=== PATIENT | male | born 1990 | race Caucasian/White ===

== ENCOUNTER 2016-05-30 21:06 | Inpatient (IN) | payer OTHER ==
[~2016-05-30] VITALS: Ht 177.8 cm; Wt 94.7 kg
[2016-05-30 22:20] LABS: MEAN CORPUSCULAR HEMOGLOBIN 29.6 pg (27.0-33.0); MEAN CORPUSCULAR HGB CONC 33.3 g/dl (32.0-36.5); MEAN CORPUSCULAR VOLUME 89.1 fl (80.0-96.0); RED CELL DISTRIBUTION WIDTH 13.2 % (11.5-14.5); WHITE BLOOD COUNT 9.3 K/mm3 (4.0-10.0)
[2016-05-30 22:32] LABS: ALBUMIN 4.2 GM/DL (3.2-5.2); ALKALINE PHOSPHATASE 83 U/L (45-117); ALT/SGPT 32 U/L (12-78); ANION GAP 9 MEQ/L (8-16); AST/SGOT 17 U/L (15-37); BILIRUBIN,DIRECT < 0.1 MG/DL (0.0-0.2); BILIRUBIN,TOTAL 0.4 MG/DL (0.2-1.0); BLOOD UREA NITROGEN 14 MG/DL (7-18); CALCIUM LEVEL 8.7 MG/DL (8.5-10.1); CARBON DIOXIDE LEVEL 26 MEQ/L (21-32); CHLORIDE LEVEL 106 MEQ/L (98-107); CREATININE FOR GFR 0.91 MG/DL (0.70-1.30); GLOMERULAR FILTRATION RATE > 60.0 (>60); GLUCOSE, FASTING 88 MG/DL (70-105); POTASSIUM SERUM 3.8 MEQ/L (3.5-5.1); SODIUM LEVEL 141 MEQ/L (136-145); TOTAL PROTEIN 7.7 GM/DL (6.4-8.2)
[2016-05-30 22:44] LABS: AMPHETAMINES LEVEL URINE NEGATIVE (NEGATIVE); BENZODIAZEPINES URINE NEGATIVE (NEGATIVE); COCAINE METABOLITE URINE NEGATIVE (NEGATIVE); CONTROL LINE INT CTR LINE PRESENT; METHADONE URINE NEGATIVE (NEGATIVE); OPIATES URINE NEGATIVE (NEGATIVE); TRICYCLIC ANTIDEPRESS URINE NEGATIVE (NEGATIVE)
[2016-05-31] MEDS ORDERED: ACETAMINOPHEN TAB 650MG DOSE (2X325MG) PO PRN (00:15)
[2016-05-31] MEDS ORDERED: MAALOX 30 ML SUSP *UDC PO PRN (00:15)
[2016-05-31] MEDS ORDERED: MOM 30ML SUSPENSION UDC PO PRN (00:15)
[2016-05-31] MEDS ORDERED: ACET-654 PO (00:42)
[2016-05-31] MEDS ORDERED: OCEA0.654 (00:42)
--- NOTE | 2016-05-31 02:27 | EDDOCDS ---
Physician Documentation [facility] Name: Thom Lopez Age: 26 yrs Sex: Male : 1990 Arrival Date: 05/30/2016 Time: 21:06 Bed [facility] Private MD: Other - Complete Info On Cds Disposition: 05/30/16 23:57 Hospitalization ordered by Gustavo Gilman for Inpatient Admission. Preliminary diagnosis is Suicidal ideations. - Bed requested for Admit. - Status is Inpatient Admission. rw1 - Condition is Stable. - Problem is new. - Symptoms are unchanged. Historical: - Allergies: No known drug Allergies; - Home Meds: 1. none - PMHx: none; - PSHx: none; - Social history: Smoking status: Patient uses tobacco products, heavy tobacco smoker. No barriers to communication noted, The patient speaks fluent Telugu, Speaks appropriately for age. - Family history: Not pertinent. - : The pt / caregiver states he / she is not on anticoagulants. Home medication list is obtained from the patient. - Exposure Risk Screening:: None identified. Vital Signs: 05/30 21:08 BP 149 / 85; Pulse 83; Resp 18 S; Temp 96.5(O); Pulse Ox 99% on R/A; Weight 86.64 kg / gr2 191.01 lbs (R); Height 5 ft. 10 in. (177.80 cm) (R); Pain 2/10; 05/31 02:17 BP 133 / 70; Pulse 88; Resp 18; Temp 96.9(O); Pulse Ox 98% on R/A; Pain 0/10; rw1 05/30 21:08 Body Mass Index 27.41 (86.64 kg, 177.80 cm) gr2 MDM: 05/30 21:30 Consult PFS/PSA/Child Care ordered. br1 21:30 Consult PFS/PSA/Child Care: Patient's case requires discussion with on-call br1 Psychiatrist ordered. 21:30 PSA/PFS to call Nursing Card Player, to enter patient data on [place] Safe Act if patient br1 involuntarily admitted or transferred for SI or HI ordered. 21:30 Confirm accurate psychiatric medication list and times of last dosage ordered. br1 21:30 Detain Pt Until Medically/PFS Cleared ordered. br1 21:30 Acetaminophen Level Ordered. EDMS 21:30 Basic Metabolic Profile Ordered. EDMS 21:30 Complete Blood Count Ordered. EDMS 21:30 Drug Eval Toxicology ED Only Ordered. EDMS 21:30 Ethyl Alcohol (ethanol) Ordered. EDMS 21:30 Liver Profile Ordered. EDMS 21:30 Salicylate Level Ordered. EDMS 21:30 Thyroid Stimulating Hormone Ordered. EDMS 22:03 Financial registration complete. [email or web address] 22:04 [facility] Payment Agreement was scanned into [employer] and attached to record. ks16 22:26 Complete Blood Count Reviewed. br1 22:36 Acetaminophen Level Reviewed. br1 22:36 Ethyl Alcohol (ethanol) Reviewed. br1 22:36 Salicylate Level Reviewed. br1 22:36 Basic Metabolic Profile Reviewed. br1 22:36 Liver Profile Reviewed. br1 22:36 Thyroid Stimulating Hormone Reviewed. br1 22:59 Drug Eval Toxicology ED Only Reviewed. br1 23:00 Consult PFS/PSA/Socail Worker: Cleared medically for eval ordered. br1 23:49 Consult PFS/PSA/Socail Worker: Cleared medically for eval complete. jfb 23:49 Consult PFS/PSA/Child Care complete. jfb 23:49 Consult PFS/PSA/Child Care: Patient's case requires discussion with on-call jfb Psychiatrist complete. 23:49 PSA/PFS to call Nursing Card Player, to enter patient data on [facility] Safe Act if patient jfb involuntarily admitted or transferred for SI or HI complete. 05/31 00:13 Admit to IM: ordered. EDMS 00:13 REGULAR DIET ordered. EDMS 00:26 [facility] Legal paperwork was scanned into [employer] and attached to record. jfb 01:46 [facility] Legal paperwork was scanned into [employer] and attached to record. jfb Signatures: Dispatcher [employer] EDMS Jose Juan Holguin, RN RN cz Cristian Wiggins,HRIS MANAGER HRIS MANAGER rw1 Pardeep Jimenez MD MD br1 Miriam Kwok PSA PSA jfb Rhoda Marino, Reg Reg ks16 The chart was reviewed and I authenticate all verbal orders and agree with the evaluation and treatment provided.Attachments: 05/30 22:04 [facility] Payment Agreement [email or web address] MTDD
--- NOTE | 2016-05-31 02:28 | EDDOCDS ---
Nurse's Notes [facility] Name: Thom Lopez Age: 26 yrs Sex: Male : 1990 Arrival Date: 05/30/2016 Time: 21:06 Bed U2 Private MD: Other - Complete Info On Cds Diagnosis: Suicidal ideations Presentation: 05/30 21:12 Presenting complaint: Patient states: he has been haivng thoughts of suicide for a cz couple of years has been drinking suicidal pain of bleeding self in the tub. Mental Health Triage Level: Level 2: The patient displays active suicidal ideations. Adult Sepsis Screening: The patient does not have new or worsening altered mentation. Patient's respiratory rate is less than 22. Systolic blood pressure is greater than 100. Patient has a qSOFA score of 0- Negative Sepsis Screen. Mental Health Triage Level: Level 2: The patient displays active suicidal ideations. Suicide/Homicide risk assessment- The patient admits to and/or has been reported to be having suicidal ideations. Patient denies SI and HI but presents with another emotional, behavioral or other mental health complaint. The patient reports that he/she has not been admitted to an inpatient mental health facility in the last 30 days. The patient reports that he/she has a recent or current history of substance abuse. The patient reports that he/she has a prior history of suicide attempt and/or organized plan. The patient reports that he/she has not experienced a significant life altering event in the last 30 days. The patient reports that he/she has adequate social support. 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 Transition of care: patient was not received from another setting of care. 21:12 Acuity: MALAIKA Level 3 cz 21:12 Method Of Arrival: Police Car cz Triage Assessment: 21:15 General: Appears uncomfortable. Pain: Denies pain. HIV screening NA for this visit. cz Historical: - Allergies: No known drug Allergies; - Home Meds: 1. none - PMHx: none; - PSHx: none; - Social history: Smoking status: Patient uses tobacco products, heavy tobacco smoker. No barriers to communication noted, The patient speaks fluent Argentine, Speaks appropriately for age. - Family history: Not pertinent. - : The pt / caregiver states he / she is not on anticoagulants. Home medication list is obtained from the patient. - Exposure Risk Screening:: None identified. Screenin/10 02:17 Screening information is obtained from the patient. Fall risk: No risks identified. rw1 Assistance ADL's: requires no assistance with activities of daily living. Abuse/DV Screen: The patient / caregiver reports he/she is: not in a situation that causes fear, pain or injury. Nutritional screening: No deficits noted. Advance Directives: Currently, there is no health care proxy. home support is adequate. Assessment: 05/30 21:29 General: Appears in no apparent distress, Behavior is cooperative. Pain: Denies pain. mgs Neurological: Level of Consciousness is awake, alert. Cardiovascular: Capillary refill < 3 seconds Heart tones S1 S2 present Pulses are 2+ in right radial artery and left radial artery. Respiratory: Airway is patent Respiratory effort is even, unlabored, Respiratory pattern is regular, symmetrical, Breath sounds are clear bilaterally. Derm: Skin is normal. 23:30 General: Appears in no apparent distress, comfortable, Behavior is appropriate for age, rw1 cooperative, quiet. Pain: Denies pain. Neurological: Level of Consciousness is awake, alert, obeys commands, Oriented to person, place, time. Respiratory: Airway is patent Respiratory effort is even, unlabored. Derm: Skin is pink, warm & dry. normal. 05/31 00:26 Reassessment: Patient appears in no apparent distress at this time. resting quietly on rw1 stretcher with eyes closed, safety maintained will monitor.. 01:35 General: Appears in no apparent distress, comfortable, Behavior is resting quietly on cf2 stretcher, safety maintained. Respiratory: Airway is patent Respiratory effort is even, unlabored. Derm: Skin is pink, warm & dry. normal. 02:17 Reassessment: Patient appears in no apparent distress at this time. Patient denies pain rw1 at this time. 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 [facility] Behavioral Health: billie The patient is not an established patient of [facility] Behavioral Health. Referral Information: Evaluation referral is generated by the patient himself / herself. The patient was referred for evaluation because Patient admits to suicidal ideation with a plan to allow self to bleed out in tub. . Subjective: The patients chief complaint is Patient reports that he called police because he is suicidal. Patient reports that he plans to do this by allowing himself to bleed out in the tub. Patient reports that this is a result of having sexual identity issues and dependency issues. Patient reports that he has had sexual identity issues since 13 years of age. He admits that he was previous hospitalized in 2015 at [facility] for depression. Patient admits to previous suicide attempt at age of 23 for same purpose. Patient reports that he was previously prescribed Seroquel and citalopram which he himself stopped abruptly on his own because he felt that they caused his depression to worsen. Patient admits to having appetite and sleep disturbances. He says that he has the desire to eat but doesn't. Patient reports only sleeping approximately 5 hours a night. Patient admits to drinking more frequently lately than usual. Has drank 4 80 proof bottles of liquor over past two days. Smokes one pack of cigarettes a day and denies illegal drug use. Patient denies abuse history or outpatient treatment. Denies family history of psychiatric concerns. Patient lives in apartment on [address] with , 7 month old child, and step child. Patient denies ever being deployed. . Mental Health history: suicide ideation Patient reports an attempt at suicide at age of 23 but does not disclose how. Patient reports suicidal ideation since age of 13. Mental Health Admissions: Patient admits to admission at [facility] in 2015 for depression. Current Outpatient Mental Health Services: None. Current living environment is The patient currently lives with his / her children. with his / her significant other, Patient lives with .. Patient presents to Emergency Department with the following symptoms within the past 2 weeks: depressed mood. Substance abuse: Patient uses of liquor, 4 80 proof bottles in two days more frequent over past two days Last use was Patient uses tobacco 1/2 pack Frequency daily. Mental status exam: Patients appearance is disheveled Patient's behavior is cooperative, Speech is normal. Affect is flat. Mood is depressed. Auditory Hallucinations are reported by the patient. Appetite is poor. Memory is good. Energy level is poor. Content of thought is normal. Thought process is intact. Cognitive level is oriented to person, place, time and situation Patient's insight is good. Judgement is good. Rapport with interviewer is good. Suicidal Ideation present with a plan to kill self by bleeding self out in tub. Homicidal ideation is not present. Disposition: Medically cleared for disposition by Pardeep Jimenez MD Psychiatric Consult is performed by phone with Dr Gustavo Gilman MD. [facility] Admission Criteria: The patient is experiencing suicidal ideation. 05/31 00:19 DSM-V Differential Diagnosis: Unspecified Depressive Disorder (F32.9). jfb Vital Signs: 02 21:08 BP 149 / 85; Pulse 83; Resp 18 S; Temp 96.5(O); Pulse Ox 99% on R/A; Weight 86.64 kg gr2 (R); Height 5 ft. 10 in. (177.80 cm) (R); Pain 2/10; 05/31 02:17 BP 133 / 70; Pulse 88; Resp 18; Temp 96.9(O); Pulse Ox 98% on R/A; Pain 0/10; rw1 05/30 21:08 Body Mass Index 27.41 (86.64 kg, 177.80 cm) gr2 Vitals: 05/30 21:08 Log In Time: May 30, 2016 at 21:08. RN notified that patient meets Red Flag gr2 criteria. ED Course: 21:07 Patient visited by Dimple Lott. gr2 21:07 Other - Complete Info On Cds is Private Physician. gr2 21:07 Patient moved to Waiting gr2 21:09 Patient visited by Dimple Lott. gr2 21:10 Patient moved to I cz 21:15 Triage Initiated cz 21:29 Pardeep Jimenez MD is Attending Physician. br1 21:30 Patient visited by Pedro Samuel RN. mgs 21:45 Patient visited by Pardeep Jimenez MD. br1 21:51 Acetaminophen Level Sent. mgs 21:51 Basic Metabolic Profile Sent. mgs 21:51 Complete Blood Count Sent. mgs 21:51 Ethyl Alcohol (ethanol) Sent. mgs 21:51 Liver Profile Sent. mgs 21:51 Salicylate Level Sent. mgs 21:51 Thyroid Stimulating Hormone Sent. mgs 22:04 [facility] Payment Agreement was scanned into [employer] and attached to record. ks16 22:26 Drug Eval Toxicology ED Only Sent. mgs 22:55 Caitlyn He,HELIO is Primary Nurse. cf2 22:56 Patient visited by Caitlyn He,HELIO. cf2 23:30 Patient visited by Cristian Wiggins LPN. rw1 23:36 Patient moved to [facility] apr 23:46 Patient visited by Abel Arnold. tr 23:57 Gustavo Gilman MD is Hospitalizing Provider. br1 05/31 00:00 Patient visited by Abel Arnold. tr 00:26 [facility] Legal paperwork was scanned into [employer] and attached to record. jfb 00:29 Patient visited by Abel Arnold. tr 00:54 Patient visited by Cristian Wiggins LPN. rw1 00:59 Patient visited by Abel Arnold. tr 01:31 Patient visited by Abel Arnold. tr 01:46 [facility] Legal paperwork was scanned into [employer] and attached to record. jfb 02:01 Patient visited by Abel Arnold. tr 02:15 Patient visited by Abel Arnold. tr 02:17 The patient / caregiver is instructed regarding the plan of care and ED course. rw1 02:17 No IV's were initiated during this patient's visit. No procedures done that require rw1 assistance. Attachments: 01:46 [facility] Legal paperwork jfb Order Results: Lab Order: Acetaminophen Level; SPEC'M 05/30/16 21:48 Test: ACETAMINOPHEN LEVEL; Value: < 2.0; Range: 10.0-30.0; Abnormal: Below low normal; Units: UG/ML; Status: F Lab Order: Basic Metabolic Profile; SPEC'M 05/30/16 21:48 Test: GLUCOSE, FASTING; Value: 88; Range: 70-105; Units: MG/DL; Status: F Test: BLOOD UREA NITROGEN; Value: 14; Range: 7-18; Units: MG/DL; Status: F Test: CREATININE FOR GFR; Value: 0.91; Range: 0.70-1.30; Units: MG/DL; Status: F Test: GLOMERULAR FILTRATION RATE; Value: > 60.0; Range: >60; Status: F Test: SODIUM LEVEL; Value: 141; Range: 136-145; Units: MEQ/L; Status: F Test: POTASSIUM SERUM; Value: 3.8; Range: 3.5-5.1; Units: MEQ/L; Status: F Test: CHLORIDE LEVEL; Value: 106; Range: 98-107; Units: MEQ/L; Status: F Test: CARBON DIOXIDE LEVEL; Value: 26; Range: 21-32; Units: MEQ/L; Status: F Test: ANION GAP; Value: 9; Range: 8-16; Units: MEQ/L; Status: F Test: CALCIUM LEVEL; Value: 8.7; Range: 8.5-10.1; Units: MG/DL; Status: F Test Note: ; Units are mL/min/1.73 m2 Chronic Kidney Disease Staging per NKF: Stage I & II GFR >=60 Normal to Mildly Decreased Stage III GFR 30-59 Moderately Decreased Stage IV GFR 15-29 Severely Decreased Stage V GFR <15 Very Little GFR Left ESRD GFR <15 on DIRECTOR CREDIT RISK Lab Order: Complete Blood Count; SPEC'M 05/30/16 21:48 Test: WHITE BLOOD COUNT; Value: 9.3; Range: 4.0-10.0; Units: K/mm3; Status: F Test: RED BLOOD COUNT; Value: 5.17; Range: 4.30-6.10; Units: M/mm3; Status: F Test: HEMOGLOBIN; Value: 15.3; Range: 14.0-18.0; Units: g/dl; Status: F Test: HEMATOCRIT; Value: 46.0; Range: 42.0-52.0; Units: %; Status: F Test: MEAN CORPUSCULAR VOLUME; Value: 89.1; Range: 80.0-96.0; Units: fl; Status: F Test: MEAN CORPUSCULAR HEMOGLOBIN; Value: 29.6; Range: 27.0-33.0; Units: pg; Status: F Test: MEAN CORPUSCULAR HGB CONC; Value: 33.3; Range: 32.0-36.5; Units: g/dl; Status: F Test: RED CELL DISTRIBUTION WIDTH; Value: 13.2; Range: 11.5-14.5; Units: %; Status: F Test: PLATELET COUNT, AUTOMATED; Value: 229; Range: 150-450; Units: k/mm3; Status: F Lab Order: Drug Eval Toxicology ED Only; SPEC'M 05/30/16 22:24 Test: AMPHETAMINES LEVEL URINE; Value: NEGATIVE; Range: NEGATIVE; Status: F Test: BARBITURATES URINE; Value: NEGATIVE; Range: NEGATIVE; Status: F Test: BENZODIAZEPINES URINE; Value: NEGATIVE; Range: NEGATIVE; Status: F Test: CANNABINOIDS URINE; Value: NEGATIVE; Range: NEGATIVE; Status: F Test: COCAINE METABOLITE URINE; Value: NEGATIVE; Range: NEGATIVE; Status: F Test: METHADONE URINE; Value: NEGATIVE; Range: NEGATIVE; Status: F Test: OPIATES URINE; Value: NEGATIVE; Range: NEGATIVE; Status: F Test: TRICYCLIC ANTIDEPRESS URINE; Value: NEGATIVE; Range: NEGATIVE; Status: F Test Note: ; ALL PRESUMPTIVE POSITIVE FINDINGS ARE UNCONFIRMED NORMAL VALUES THRESHOLD IN NG/ML AMPHETAMINES 1000 METHAMPHETAMINES 1000 BARBITURATES 300 BENZODIAZEPINES 300 CANNABINOIDS (THC) 50 COCAINE METABOLITE 300 METHADONE 300 OPIATES 300 PHENCYCLIDINE 25 TRICYCLIC ANTIDEPRESSANTS 1000 RESULTS ARE FOR MEDICAL PURPOSES ONLY. ALL URINE SPECIMENS WILL BE SAVED FOR 3 DAYS. IF CONFIRMATION OF A PRESUMPTIVE POSTIVE SCREEN RESULT IS DESIRED, CALL CHEMISTRY ([phone]) AND REQUEST URINE TO BE SENT TO REFERENCE LAB. FOR A LIST OF CLOSELY RELATED COMPOUNDS PLEASE CALL THE LAB. Lab Order: Ethyl Alcohol (ethanol); SPEC'M 05/30/16 21:48 Test: ETHYL ALCOHOL (ETHANOL); Value: 0.093; Range: 0.000-0.010; Abnormal: Above high normal; Units: %; Status: F Lab Order: Liver Profile; SPEC'M 05/30/16 21:48 Test: AST/SGOT; Value: 17; Range: 15-37; Units: U/L; Status: F Test: ALT/SGPT; Value: 32; Range: 12-78; Units: U/L; Status: F Test: ALKALINE PHOSPHATASE; Value: 83; Range: 45-117; Units: U/L; Status: F Test: BILIRUBIN,TOTAL; Value: 0.4; Range: 0.2-1.0; Units: MG/DL; Status: F Test: BILIRUBIN,DIRECT; Value: < 0.1; Range: 0.0-0.2; Units: MG/DL; Status: F Test: TOTAL PROTEIN; Value: 7.7; Range: 6.4-8.2; Units: GM/DL; Status: F Test: ALBUMIN; Value: 4.2; Range: 3.2-5.2; Units: GM/DL; Status: F Test: ALBUMIN/GLOBULIN RATIO; Value: 1.20; Range: 1.00-1.93; Status: F Lab Order: Salicylate Level; SPEC'M 05/30/16 21:48 Test: SALICYLATE LEVEL; Value: 2.3; Range: 5.0-30.0; Abnormal: Below low normal; Units: MG/DL; Status: F Lab Order: Thyroid Stimulating Hormone; SPEC'M 05/30/16 21:48 Test: THYROID STIMULATING HORMONE; Value: 0.852; Range: 0.358-3.740; Units: uIU/ML; Status: F Outcome: 05/30 23:57 Decision to Hospitalize by Provider. br1 05/31 02:17 Discharge Assessment: Patient awake, alert and oriented x 3. No cognitive and/or rw1 functional deficits noted. Patient verbalized understanding of disposition instructions. patient administered narcotics - no. The following High Risk Discharge criteria are identified: Admitted to Psych accompanied by tech, via wheelchair, with chart. Condition: stable. No special radiology studies were completed. Property removed, inventory done, secured in belongings bag- given to [facility] staff. 02:26 Patient left the ED. rw1 Signatures: Veronika Reilly RN RN jan Zecher, Calvin, Abel Alvarez RN, Robert, LPN LPN rw1 Pardeep Jimenez MD MD br1 Miriam Kwok PSA PSA Dimple Guidry gr2 Pedro Samuel,HELIO CADET mgs Rhoda Marino, Reg Reg ks16 Caitlyn He,RN RN cf2 MTDD
[2016-05-31 02:36] VITALS: BP 126/76
[2016-05-31] MEDS: NICOTINE 21MG/24HR 1 EA TRANSDERMAL TD SCH (09:54)
--- NOTE | 2016-05-31 11:16 | HPEPDOC ---
Medical History and Physical Date of Admission May 31, 2016 at 02:33 History and Physical PCP: [facility]. ATTENDING: Dr. Eleno Hoffman HPI: 26yoM admitted to [facility] for MDD, being medically examined today. No acute medical complaints today. Denies any fevers, chills, weakness, fatigue, DOBSON, CP, SOB, cough, palpitations, abdominal pain, N/V/D or changes in bowel or bladder habits. 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 Illicit Drugs: Patient states marijuana years ago IV Drug Use: Denies Tattoos done unprofessionally: Denies FAMHX: Mother: Alive, unknown Father: Alive, well Siblings: None Children: No biological children Unexpected deaths due to medical reasons: None. ROS: As noted in HPI, otherwise 11pt ROS of systems reviewed and unremarkable PE: GEN: 26yoM, appears stated age. Well-nourished, well developed. No acute distress. Alert and oriented x 3. Pleasant, interactive. HEENT: Normocephalic, atraumatic. Pupils are equal, round, and reactive to light. Extraocular movements are intact. No nystagmus appreciated. Sclera are nonicteric. Conjunctiva without injection. Nose midline. Nasal turbinates without bogginess. EACs both patent BL. TMs both visualized and esteban with good cone of light, no bulging or erythema. No facial asymmetry. Moist mucous membranes. Dentition fair. Pharynx pink and moist, no cobblestoning. Neck supple , trachea midline. No lymphadenopathy or thyromegaly appreciated. CHEST: Regular rate and rhythm, +S1, +S2 LUNGS: Clear to auscultation bilaterally. No wheezes, rales, or rhonchi. Breathing appears symmetric and easy. Patient is speaking in full sentences. No accessory muscle use. ABD: Round, soft, non-tender, non-distended. +Bowel sounds throughout. No rebound or guarding. No costovertebral angle tenderness. EXT: Pulses 2+ bilaterally dorsalis pedis and radial. No lower extremity edema appreciated. SKIN: Equality, dry, warm. Capillary refill <2sec. No rashes. NEURO: Alert and oriented x 3. Cranial nerves III-XII are intact. No focal deficits appreciated. EKG: pending. A&P: 26yoM admitted to [facility] for MDD 1. Psych. Plan per Psychiatry. Obtain baseline EKG to assure the safety of psychiatric medications as they can prolong the QT interval. 2. Nicotine dependence. Patch available. 3. Follow up with PCP on discharge. [facility]. 4. Staff member present throughout exam, ana paula Doyle. Vital Signs Vital Signs Label Value Date Time Patient Temperature 95.9 degrees F 05/31/16235 Pulse 80 05/31/16235 Respiratory Rate 16 bpm 05/31/16235 Blood Pressure Assessment 126/76 (93) 05/31/16 0236 Laboratory Data Labs 24H Laboratory Tests 2 05/30/16 21:48: Acetaminophen Level < 2.0L, Aspartate Amino Transf (AST/SGOT) 17, Alanine Aminotransferase (ALT/SGPT) 32, Alkaline Phosphatase 83, Total Bilirubin 0.4, Direct Bilirubin < 0.1, Albumin 4.2, Albumin/Globulin Ratio 1.20, Anion Gap 9, Calcium Level 8.7, Ethyl Alcohol Level 0.093H, Glomerular Filtration Rate > 60.0 , Salicylates Level 2.3L, Thyroid Stimulating Hormone (TSH) 0.852, Total Protein 7.7 05/30/16 22:24: Urine Amphetamine Level NEGATIVE, Urine Benzodiazepines Screen NEGATIVE, Urine Cannabinoids NEGATIVE, Urine Cocaine Metabolite NEGATIVE, Urine Opiates Screen NEGATIVE, Urine Barbiturates, Qualitative NEGATIVE, Urine Methadone Screen NEGATIVE, Urine Tricyclic Antidepressants NEGATIVE CBC/BMP Laboratory Tests 05/30/16 21:48 Red Blood Count 5.17, Mean Corpuscular Volume 89.1, Mean Corpuscular Hemoglobin 29.6, Mean Corpuscular Hemoglobin Concent 33.3, Red Cell Distribution Width 13.2 Home Medications Scheduled PRN Acetaminophen (Acetaminophen) 325 Mg Tab 650 MG PO Q4H PRN PRN PAIN Sodium Chloride ([place] Nasal [place]) 0.65 % Spr 2 SPRAY NA QID PRN PRN NASAL DRYNESS EACH NOSTRIL Allergies Coded Allergies: No Known Allergies (Unverified , 05/31/16) Claudia Hurst May 31, 2016 11:16
[2016-05-31] MEDS: OSELTAMIVIR PHOSPHATE 75 MG CAP (TAMIFLU) PO SCH (13:03)
--- NOTE | 2016-05-31 14:19 | MHHPE ---
DATE OF ADMISSION: 05/31/2016 LEGAL STATUS AT ADMISSION: 9.39 legal status. 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 According to the chart, patient came to the emergency department complaining of depression and suicidal ideation with the plan to cut himself and allow himself to bleed out in the bathtub. Patient was also reporting significant worsening of depression. During the interview today, patient reports he has very low energy, "I am tired all the time, I don't do anything, I am awkward, people don't like to talk to me." Reports mood fluctuations, sleep problems with vivid dreams, very low self-esteem, "I am very critical of myself," and intermittent suicidal thoughts. During the interview there is no evidence of psychotic symptoms, no auditory or visual hallucinations or delusions. The above is in the context of a patient that his mother left when he was [age], his father was a nuclear reactor operator that was traveling very frequently when he was little, he was diagnosed with attention deficit hyperactivity disorder (ADHD) by his report during his school years. PAST MEDICAL HISTORY: Patient has no acute medical problems. PAST PSYCHIATRIC HISTORY: Patient has been diagnosed with depression, anxiety, "manic bipolar." "I have abandonment issues." He has been treated in the past with Celexa and Seroquel, also reported that he was treated with Adderall but he admits that he misused the medication. FAMILY HISTORY: Patient reports no relatives having any psychiatric problems except a great uncle who was depressed and had problems with alcohol. SUBSTANCE ABUSE HISTORY: Patient reports that he experimented with marijuana and is abusing alcohol lately. Patient reports he drank four 80 proof bottles of liquor over the past 2 days. SOCIAL HISTORY: As above, patient stated that his mother left home when he was [age]. His father was a nuclear reactor operator and he was changing jobs frequently and [place] traveled [place] [facility]. He also stated that he was bullied at school. He stated that he took Adderall for ADHD but he misused/abused it. He is now . His is in [facility]. They have not seen each other for the last 5 months. 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 Patient feels that his and him are not as close as they used to be. REVIEW OF SYSTEMS: CONSTITUTIONAL: No weight loss, fever, chills, weakness, or fatigue. HEENT: No visual loss, blurry vision, double vision, or yellow sclerae. No hearing loss, sneezing, congestion, runny nose, or sore throat. SKIN: No rash or itching. CARDIOVASCULAR: No chest pain, chest pressure, chest discomfort, palpitations, or edema. RESPIRATORY: No shortness of breath, cough, or sputum. GASTROINTESTINAL (GI): No anorexia, nausea, vomiting, or diarrhea. No abdominal pain or blood. GENITOURINARY (): No burning or pain on urination. NEUROLOGICAL: No headache, dizziness, syncope, paralysis, ataxia, numbness, or tingling. MUSCULOSKELETAL: No muscular back pain, joint pain, or stiffness. HEMATOLOGIC: No anemia, bleeding, or bruising. LYMPHATICS: No history of a splenectomy. ENDOCRINOLOGY: No report of sweating, cold, or heat intolerance. No polyuria or polydipsia. ALLERGIES: No history of asthma, hives, eczema, or rhinitis. PHYSICAL EXAMINATION: As per physician printer assistant. LABORATORY DATA: CBC is unremarkable. CMP within normal limits. TSH normal. Blood alcohol level 0.93. Urine drug screen (UDS) is negative. MENTAL STATUS EXAMINATION: Patient is dressed in [facility]. Patient is cooperative during the interview. Speech is soft and monotone. Poor eye contact. Mood is depressed and anxious. Affect is restricted and congruent with mood. Patient is oriented to time, place, person, and situation. Maintains attention and concentration fairly. Instant recall, recent, and remote memory are intact. Thought processes are coherent, logical, and goal-directed. Patient does not have auditory or visual hallucinations. Patient does not have paranoid, persecutory, somatic, grandiose, or denominational delusions. Patient is reporting suicidal ideation with plan to cut himself and let himself bleed in the bathtub. No homicidal ideation. Judgment and insight are fair. DIAGNOSES: AXIS I: Unspecified depressive disorder. Rule out major depression. Alcohol abuse. AXIS II: Deferred. AXIS III: None acute. INITIAL TREATMENT PLAN: Patient was admitted on a 9.39 legal status. Complete history was obtained. With his permission, family will be contacted and database will be expanded. His medication regimen will be reviewed and changed accordingly. He will be provided with protected environment. He will be treated with individual, group, and milieu therapies. He will also receive supportive psychoeducation. Discharge planning will commence immediately. Length of stay will between 5-7 days. Outpatient followup will be strongly recommended. The treatment plan will focus initially on depression, risk for suicide, and alcohol abuse.
--- NOTE | 2016-05-31 15:14 | ECGEPIP ---
Stationary ECG Study [facility] Test Date: 2016-05-31 Pat Name: JASON ESPINO Department: Room: [place] [address] Gender: M Photograph Inspector: MAIA : 1990 Requested By: Claudia Hurst Order Number: [id number] Reading MD: Vielka Aguilar Measurements Intervals [place] Rate: 78 P: 40 SD: 151 QRS: 52 QRSD: 118 T: 42 QT: 372 QTc: 424 Interpretive Statements SINUS RHYTHM INTRAVENTRICULAR CONDUCTION DELAY NO PRIOR Electronically Signed On 05-31-2016 15:14:07 EST by Vielka Aguilar
[2016-05-31 18:00] VITALS: BP 131/71
[2016-06-01 06:16] VITALS: BP 124/70
[2016-06-01] MEDS: OSELTAMIVIR PHOSPHATE 75 MG CAP (TAMIFLU) PO SCH (08:16)
[2016-06-01] MEDS: CitaloPRAM (CeleXA) 20 MG TAB PO SCH (08:16)
[2016-06-01] MEDS: NICOTINE 21MG/24HR 1 EA TRANSDERMAL TD SCH ×2 (08:17→13:35)
[2016-06-01] MEDS: QUEtiapine FUMARATE 12.5 MG HALF-TAB PO PRN (13:35)
[2016-06-01 18:38] VITALS: BP 122/65
[2016-06-01] MEDS: QUEtiapine FUMARATE 50 MG TAB PO PRN (20:13)
--- NOTE | 2016-06-02 03:28 | EDDOCDS ---
Physician Documentation [facility] Name: Thom Lopez Age: 26 yrs Sex: Male : 1990 Arrival Date: 05/30/2016 Time: 21:06 [facility] MD: Other - Complete Info On Cds Disposition: 05/30/16 23:57 Hospitalization ordered by Gustavo Gilman for Inpatient Admission. Preliminary diagnosis is Suicidal ideations. - Bed requested for Admit. - Status is Inpatient Admission. rw1 - Condition is Stable. - Problem is new. - Symptoms are unchanged. Historical: - Allergies: No known drug Allergies; - Home Meds: 1. none - PMHx: none; - PSHx: none; - Social history: Smoking status: Patient uses tobacco products, heavy tobacco smoker. No barriers to communication noted, The patient speaks fluent Wolof, Speaks appropriately for age. - Family history: Not pertinent. - : The pt / caregiver states he / she is not on anticoagulants. Home medication list is obtained from the patient. - Exposure Risk Screening:: None identified. Vital Signs: 05/30 21:08 BP 149 / 85; Pulse 83; Resp 18 S; Temp 96.5(O); Pulse Ox 99% on R/A; Weight 86.64 kg / gr2 191.01 lbs (R); Height 5 ft. 10 in. (177.80 cm) (R); Pain 2/10; 05/31 02:17 BP 133 / 70; Pulse 88; Resp 18; Temp 96.9(O); Pulse Ox 98% on R/A; Pain 0/10; rw1 05/30 21:08 Body Mass Index 27.41 (86.64 kg, 177.80 cm) gr2 MDM: 05/30 21:30 Consult PFS/PSA/Bearing Inspector ordered. br1 21:30 Consult PFS/PSA/Bearing Inspector: Patient's case requires discussion with on-call br1 Psychiatrist ordered. 21:30 PSA/PFS to call Nursing Technical Support Technician, to enter patient data on [place] Safe Act if patient br1 involuntarily admitted or transferred for SI or HI ordered. 21:30 Confirm accurate psychiatric medication list and times of last dosage ordered. br1 21:30 Detain Pt Until Medically/PFS Cleared ordered. br1 21:30 Acetaminophen Level Ordered. EDMS 21:30 Basic Metabolic Profile Ordered. EDMS 21:30 Complete Blood Count Ordered. EDMS 21:30 Drug Eval Toxicology ED Only Ordered. EDMS 21:30 Ethyl Alcohol (ethanol) Ordered. EDMS 21:30 Liver Profile Ordered. EDMS 21:30 Salicylate Level Ordered. EDMS 21:30 Thyroid Stimulating Hormone Ordered. EDMS 22:03 Financial registration complete. [email or web address] 22:04 [facility] Payment Agreement was scanned into [employer] and attached to record. [email or web address] 22:26 Complete Blood Count Reviewed. br1 22:36 Acetaminophen Level Reviewed. br1 22:36 Ethyl Alcohol (ethanol) Reviewed. br1 22:36 Salicylate Level Reviewed. br1 22:36 Basic Metabolic Profile Reviewed. br1 22:36 Liver Profile Reviewed. br1 22:36 Thyroid Stimulating Hormone Reviewed. br1 22:59 Drug Eval Toxicology ED Only Reviewed. br1 23:00 Consult PFS/PSA/Socail Worker: Cleared medically for eval ordered. br1 23:49 Consult PFS/PSA/Socail Worker: Cleared medically for eval complete. jfb 23:49 Consult PFS/PSA/Bearing Inspector complete. jfb 23:49 Consult PFS/PSA/Bearing Inspector: Patient's case requires discussion with on-call jfb Psychiatrist complete. 23:49 PSA/PFS to call Nursing Technical Support Technician, to enter patient data on [facility] Safe Act if patient jfb involuntarily admitted or transferred for SI or HI complete. 05/31 00:13 Admit to IMHU: ordered. EDMS 00:13 REGULAR DIET ordered. EDMS 00:26 [facility] Legal paperwork was scanned into B-[employer] and attached to record. jfb 01:46 [facility] Legal paperwork was scanned into [employer] and attached to record. jfb 11:27 T-Sheet-- Draft Copy was scanned into B-152 and attached to record. gb Signatures: Dispatcher [employer] EDMS Jose Juan Holguin, HELIO RN Ana Gonzalez, Reg Reg gb Cristian Wiggins,SPARE HAND CARDING SPARE HAND CARDING rw1 Pardeep Jimenez MD MD br1 Miriam Kwok, PSA PSA jfRhoda Batista, Reg Reg [email or web address] The chart was reviewed and I authenticate all verbal orders and agree with the evaluation and treatment provided.Attachments: 05/30 22:04 [facility] Payment Agreement [email or web address] 11:27 T-Sheet-- Draft Copy gb Chart Complete MTDD
--- NOTE | 2016-06-02 03:28 | EDDOCDS ---
Physician Documentation [facility] Name: Thom Lopez Age: 26 yrs Sex: Male : 1990 Arrival Date: 05/30/2016 Time: 21:06 Bed [facility] Private MD: Other - Complete Info On Cds Disposition: 05/30/16 23:57 Hospitalization ordered by Gustavo Gilman for Inpatient Admission. Preliminary diagnosis is Suicidal ideations. - Bed requested for Admit. - Status is Inpatient Admission. rw1 - Condition is Stable. - Problem is new. - Symptoms are unchanged. Historical: - Allergies: No known drug Allergies; - Home Meds: 1. none - PMHx: none; - PSHx: none; - Social history: Smoking status: Patient uses tobacco products, heavy tobacco smoker. No barriers to communication noted, The patient speaks fluent Turkish, Speaks appropriately for age. - Family history: Not pertinent. - : The pt / caregiver states he / she is not on anticoagulants. Home medication list is obtained from the patient. - Exposure Risk Screening:: None identified. Vital Signs: 05/30 21:08 BP 149 / 85; Pulse 83; Resp 18 S; Temp 96.5(O); Pulse Ox 99% on R/A; Weight 86.64 kg / gr2 191.01 lbs (R); Height 5 ft. 10 in. (177.80 cm) (R); Pain 2/10; 05/31 02:17 BP 133 / 70; Pulse 88; Resp 18; Temp 96.9(O); Pulse Ox 98% on R/A; Pain 0/10; rw1 05/30 21:08 Body Mass Index 27.41 (86.64 kg, 177.80 cm) gr2 MDM: 05/30 21:30 Consult PFS/PSA/Digital Marketing Assistant ordered. br1 21:30 Consult PFS/PSA/Digital Marketing Assistant: Patient's case requires discussion with on-call br1 Psychiatrist ordered. 21:30 PSA/PFS to call Nursing Wheel Lacer And Truer, to enter patient data on [place] Safe [place] if patient br1 involuntarily admitted or transferred for SI or HI ordered. 21:30 Confirm accurate psychiatric medication list and times of last dosage ordered. br1 21:30 Detain Pt Until Medically/PFS Cleared ordered. br1 21:30 Acetaminophen Level Ordered. EDMS 21:30 Basic Metabolic Profile Ordered. EDMS 21:30 Complete Blood Count Ordered. EDMS 21:30 Drug Eval Toxicology ED Only Ordered. EDMS 21:30 Ethyl Alcohol (ethanol) Ordered. EDMS 21:30 Liver Profile Ordered. EDMS 21:30 Salicylate Level Ordered. EDMS 21:30 Thyroid Stimulating Hormone Ordered. EDMS 22:03 Financial registration complete. [email or web address] 22:04 [facility] Payment Agreement was scanned into MED[employer] and attached to record. [email or web address] 22:26 Complete Blood Count Reviewed. br1 22:36 Acetaminophen Level Reviewed. br1 22:36 Ethyl Alcohol (ethanol) Reviewed. br1 22:36 Salicylate Level Reviewed. br1 22:36 Basic Metabolic Profile Reviewed. br1 22:36 Liver Profile Reviewed. br1 22:36 Thyroid Stimulating Hormone Reviewed. br1 22:59 Drug Eval Toxicology ED Only Reviewed. br1 23:00 Consult PFS/PSA/Socail Worker: Cleared medically for eval ordered. br1 23:49 Consult PFS/PSA/Socail Worker: Cleared medically for eval complete. jfb 23:49 Consult PFS/PSA/Digital Marketing Assistant complete. jfb 23:49 Consult PFS/PSA/Digital Marketing Assistant: Patient's case requires discussion with on-call jfb Psychiatrist complete. 23:49 PSA/PFS to call Nursing Wheel Lacer And Truer, to enter patient data on [facility] Safe Act if patient jfb involuntarily admitted or transferred for SI or HI complete. 05/31 00:13 Admit to IMHU: ordered. EDMS 00:13 REGULAR DIET ordered. EDMS 00:26 [facility] Legal paperwork was scanned into [employer] and attached to record. jfb 01:46 [facility] Legal paperwork was scanned into [employer] and attached to record. jfb 11:27 T-Sheet-- Draft Copy was scanned into [employer] and attached to record. gb Signatures: Dispatcher [employer] EDMS Jose Juan Holguin, HELIO RN Ana Gonzalez, Reg Reg gb Cristian Wiggins,SOFTWARE ENGINEERING SUPERVISOR SOFTWARE ENGINEERING SUPERVISOR rw1 Pardeep Jimenez MD MD br1 Miriam Kwok, PSA PSA jfRhoda Batista, Reg Reg ks16 The chart was reviewed and I authenticate all verbal orders and agree with the evaluation and treatment provided.Attachments: 05/30 22:04 [facility] Payment Agreement [email or web address] 11:27 T-Sheet-- Draft Copy gb Chart Complete MTDD
--- NOTE | 2016-06-02 03:29 | EDDOCDS ---
Nurse's Notes [facility] Name: Thom Lopez Age: 26 yrs Sex: Male : 1990 Arrival Date: 05/30/2016 Time: 21:06 Bed U2 Private MD: Other - Complete Info On Cds Diagnosis: Suicidal ideations Presentation: 05/30 21:12 Presenting complaint: Patient states: he has been haivng thoughts of suicide for a cz couple of years has been drinking suicidal pain of bleeding self in the tub. Mental Health Triage Level: Level 2: The patient displays active suicidal ideations. Adult Sepsis Screening: The patient does not have new or worsening altered mentation. Patient's respiratory rate is less than 22. Systolic blood pressure is greater than 100. Patient has a qSOFA score of 0- Negative Sepsis Screen. Mental Health Triage Level: Level 2: The patient displays active suicidal ideations. Suicide/Homicide risk assessment- The patient admits to and/or has been reported to be having suicidal ideations. Patient denies SI and HI but presents with another emotional, behavioral or other mental health complaint. The patient reports that he/she has not been admitted to an inpatient mental health facility in the last 30 days. The patient reports that he/she has a recent or current history of substance abuse. The patient reports that he/she has a prior history of suicide attempt and/or organized plan. The patient reports that he/she has not experienced a significant life altering event in the last 30 days. The patient reports that he/she has adequate social support. 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 Transition of care: patient was not received from another setting of care. 21:12 Acuity: MALAIKA Level 3 cz 21:12 Method Of Arrival: Police Car cz Triage Assessment: 21:15 General: Appears uncomfortable. Pain: Denies pain. HIV screening NA for this visit. cz Historical: - Allergies: No known drug Allergies; - Home Meds: 1. none - PMHx: none; - PSHx: none; - Social history: Smoking status: Patient uses tobacco products, heavy tobacco smoker. No barriers to communication noted, The patient speaks fluent Tajik, Speaks appropriately for age. - Family history: Not pertinent. - : The pt / caregiver states he / she is not on anticoagulants. Home medication list is obtained from the patient. - Exposure Risk Screening:: None identified. Screenin/10 02:17 Screening information is obtained from the patient. Fall risk: No risks identified. rw1 Assistance ADL's: requires no assistance with activities of daily living. Abuse/DV Screen: The patient / caregiver reports he/she is: not in a situation that causes fear, pain or injury. Nutritional screening: No deficits noted. Advance Directives: Currently, there is no health care proxy. home support is adequate. Assessment: 05/30 21:29 General: Appears in no apparent distress, Behavior is cooperative. Pain: Denies pain. mgs Neurological: Level of Consciousness is awake, alert. Cardiovascular: Capillary refill < 3 seconds Heart tones S1 S2 present Pulses are 2+ in right radial artery and left radial artery. Respiratory: Airway is patent Respiratory effort is even, unlabored, Respiratory pattern is regular, symmetrical, Breath sounds are clear bilaterally. Derm: Skin is normal. 23:30 General: Appears in no apparent distress, comfortable, Behavior is appropriate for age, rw1 cooperative, quiet. Pain: Denies pain. Neurological: Level of Consciousness is awake, alert, obeys commands, Oriented to person, place, time. Respiratory: Airway is patent Respiratory effort is even, unlabored. Derm: Skin is pink, warm & dry. normal. 05/31 00:26 Reassessment: Patient appears in no apparent distress at this time. resting quietly on rw1 stretcher with eyes closed, safety maintained will monitor.. 01:35 General: Appears in no apparent distress, comfortable, Behavior is resting quietly on cf2 stretcher, safety maintained. Respiratory: Airway is patent Respiratory effort is even, unlabored. Derm: Skin is pink, warm & dry. normal. 02:17 Reassessment: Patient appears in no apparent distress at this time. Patient denies pain rw1 at this time. 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 [facility]: billie The patient is not an established patient of [facility]. Referral Information: Evaluation referral is generated by the patient himself / herself. The patient was referred for evaluation because Patient admits to suicidal ideation with a plan to allow self to bleed out in tub. . Subjective: The patients chief complaint is Patient reports that he called police because he is suicidal. Patient reports that he plans to do this by allowing himself to bleed out in the tub. Patient reports that this is a result of having sexual identity issues and dependency issues. Patient reports that he has had sexual identity issues since 13 years of age. He admits that he was previous hospitalized in 2015 at [place] for depression. Patient admits to previous suicide attempt at age of 23 for same purpose. Patient reports that he was previously prescribed Seroquel and citalopram which he himself stopped abruptly on his own because he felt that they caused his depression to worsen. Patient admits to having appetite and sleep disturbances. He says that he has the desire to eat but doesn't. Patient reports only sleeping approximately 5 hours a night. Patient admits to drinking more frequently lately than usual. Has drank 4 80 proof bottles of liquor over past two days. Smokes one pack of cigarettes a day and denies illegal drug use. Patient denies abuse history or outpatient treatment. Denies family history of psychiatric concerns. Patient lives in [address] with , 7 month old child, and step child. Patient denies ever being deployed. . Mental Health history: suicide ideation Patient reports an attempt at suicide at age of 23 but does not disclose how. Patient reports suicidal ideation since age of 13. Mental Health Admissions: Patient admits to admission at [facility] in 2015 for depression. Current Outpatient Mental Health Services: None. Current living environment is The patient currently lives with his / her children. with his / her significant other, Patient lives with .. Patient presents to Emergency Department with the following symptoms within the past 2 weeks: depressed mood. Substance abuse: Patient uses of liquor, 4 80 proof bottles in two days more frequent over past two days Last use was Patient uses tobacco 1/2 pack Frequency daily. Mental status exam: Patients appearance is disheveled Patient's behavior is cooperative, Speech is normal. Affect is flat. Mood is depressed. Auditory Hallucinations are reported by the patient. Appetite is poor. Memory is good. Energy level is poor. Content of thought is normal. Thought process is intact. Cognitive level is oriented to person, place, time and situation Patient's insight is good. Judgement is good. Rapport with interviewer is good. Suicidal Ideation present with a plan to kill self by bleeding self out in tub. Homicidal ideation is not present. Disposition: Medically cleared for disposition by Pardeep Jimenez MD Psychiatric Consult is performed by phone with Dr Gustavo Gilman MD. [facility] Admission Criteria: The patient is experiencing suicidal ideation. 05/31 00:19 DSM-V Differential Diagnosis: Unspecified Depressive Disorder (F32.9). jfb Vital Signs: 02 21:08 BP 149 / 85; Pulse 83; Resp 18 S; Temp 96.5(O); Pulse Ox 99% on R/A; Weight 86.64 kg gr2 (R); Height 5 ft. 10 in. (177.80 cm) (R); Pain 2/10; 05/31 02:17 BP 133 / 70; Pulse 88; Resp 18; Temp 96.9(O); Pulse Ox 98% on R/A; Pain 0/10; rw1 05/30 21:08 Body Mass Index 27.41 (86.64 kg, 177.80 cm) gr2 Vitals: 05/30 21:08 Log In Time: May 30, 2016 at 21:08. RN notified that patient meets Red Flag gr2 criteria. ED Course: 21:07 Patient visited by Dimple Lott. gr2 21:07 Other - Complete Info On Cds is Private Physician. gr2 21:07 Patient moved to Waiting gr2 21:09 Patient visited by Dimple Lott. gr2 21:10 Patient moved to I cz 21:15 Triage Initiated cz 21:29 Pardeep Jimenez MD is Attending Physician. br1 21:30 Patient visited by Pedro Samuel RN. mgs 21:45 Patient visited by Pardeep Jimenez MD. br1 21:51 Acetaminophen Level Sent. mgs 21:51 Basic Metabolic Profile Sent. mgs 21:51 Complete Blood Count Sent. mgs 21:51 Ethyl Alcohol (ethanol) Sent. mgs 21:51 Liver Profile Sent. mgs 21:51 Salicylate Level Sent. mgs 21:51 Thyroid Stimulating Hormone Sent. mgs 22:04 [facility] Payment Agreement was scanned into [employer] and attached to record. ks16 22:26 Drug Eval Toxicology ED Only Sent. mgs 22:55 Caitlyn He,HELIO is Primary Nurse. cf2 22:56 Patient visited by Caitlyn He,HELIO. cf2 23:30 Patient visited by Cristian Wiggins LPN. rw1 23:36 Patient moved to [facility] apr 23:46 Patient visited by Abel Arnold. tr 23:57 Gustavo Gilman MD is Hospitalizing Provider. br1 05/31 00:00 Patient visited by Abel Arnold. tr 00:26 [facility] Legal paperwork was scanned into [employer] and attached to record. jfb 00:29 Patient visited by Abel Arnold. tr 00:54 Patient visited by Cristian Wiggins LPN. rw1 00:59 Patient visited by Abel Arnold. tr 01:31 Patient visited by Abel Arnold. tr 01:46 [facility] Legal paperwork was scanned into [employer] and attached to record. jfb 02:01 Patient visited by Abel Arnold. tr 02:15 Patient visited by Abel Arnold. tr 02:17 The patient / caregiver is instructed regarding the plan of care and ED course. rw1 02:17 No IV's were initiated during this patient's visit. No procedures done that require rw1 assistance. 11:27 T-Sheet-- Draft Copy was scanned into [employer] and attached to record. gb Attachments: 01:46 [facility] Legal paperwork jfb Order Results: Lab Order: Acetaminophen Level; SPEC'M 05/30/16 21:48 Test: ACETAMINOPHEN LEVEL; Value: < 2.0; Range: 10.0-30.0; Abnormal: Below low normal; Units: UG/ML; Status: F Lab Order: Basic Metabolic Profile; SPEC'M 05/30/16 21:48 Test: GLUCOSE, FASTING; Value: 88; Range: 70-105; Units: MG/DL; Status: F Test: BLOOD UREA NITROGEN; Value: 14; Range: 7-18; Units: MG/DL; Status: F Test: CREATININE FOR GFR; Value: 0.91; Range: 0.70-1.30; Units: MG/DL; Status: F Test: GLOMERULAR FILTRATION RATE; Value: > 60.0; Range: >60; Status: F Test: SODIUM LEVEL; Value: 141; Range: 136-145; Units: MEQ/L; Status: F Test: POTASSIUM SERUM; Value: 3.8; Range: 3.5-5.1; Units: MEQ/L; Status: F Test: CHLORIDE LEVEL; Value: 106; Range: 98-107; Units: MEQ/L; Status: F Test: CARBON DIOXIDE LEVEL; Value: 26; Range: 21-32; Units: MEQ/L; Status: F Test: ANION GAP; Value: 9; Range: 8-16; Units: MEQ/L; Status: F Test: CALCIUM LEVEL; Value: 8.7; Range: 8.5-10.1; Units: MG/DL; Status: F Test Note: ; Units are mL/min/1.73 m2 Chronic Kidney Disease Staging per NKF: Stage I & II GFR >=60 Normal to Mildly Decreased Stage III GFR 30-59 Moderately Decreased Stage IV GFR 15-29 Severely Decreased Stage V GFR <15 Very Little GFR Left ESRD GFR <15 on [employer] Lab Order: Complete Blood Count; SPEC'05/30/16 21:48 Test: WHITE BLOOD COUNT; Value: 9.3; Range: 4.0-10.0; Units: K/mm3; Status: F Test: RED BLOOD COUNT; Value: 5.17; Range: 4.30-6.10; Units: M/mm3; Status: F Test: HEMOGLOBIN; Value: 15.3; Range: 14.0-18.0; Units: g/dl; Status: F Test: HEMATOCRIT; Value: 46.0; Range: 42.0-52.0; Units: %; Status: F Test: MEAN CORPUSCULAR VOLUME; Value: 89.1; Range: 80.0-96.0; Units: fl; Status: F Test: MEAN CORPUSCULAR HEMOGLOBIN; Value: 29.6; Range: 27.0-33.0; Units: pg; Status: F Test: MEAN CORPUSCULAR HGB CONC; Value: 33.3; Range: 32.0-36.5; Units: g/dl; Status: F Test: RED CELL DISTRIBUTION WIDTH; Value: 13.2; Range: 11.5-14.5; Units: %; Status: F Test: PLATELET COUNT, AUTOMATED; Value: 229; Range: 150-450; Units: k/mm3; Status: F Lab Order: Drug Eval Toxicology ED Only; SPEC'05/30/16 22:24 Test: AMPHETAMINES LEVEL URINE; Value: NEGATIVE; Range: NEGATIVE; Status: F Test: BARBITURATES URINE; Value: NEGATIVE; Range: NEGATIVE; Status: F Test: BENZODIAZEPINES URINE; Value: NEGATIVE; Range: NEGATIVE; Status: F Test: CANNABINOIDS URINE; Value: NEGATIVE; Range: NEGATIVE; Status: F Test: COCAINE METABOLITE URINE; Value: NEGATIVE; Range: NEGATIVE; Status: F Test: METHADONE URINE; Value: NEGATIVE; Range: NEGATIVE; Status: F Test: OPIATES URINE; Value: NEGATIVE; Range: NEGATIVE; Status: F Test: TRICYCLIC ANTIDEPRESS URINE; Value: NEGATIVE; Range: NEGATIVE; Status: F Test Note: ; ALL PRESUMPTIVE POSITIVE FINDINGS ARE UNCONFIRMED NORMAL VALUES THRESHOLD IN NG/ML AMPHETAMINES 1000 METHAMPHETAMINES 1000 BARBITURATES 300 BENZODIAZEPINES 300 CANNABINOIDS (THC) 50 COCAINE METABOLITE 300 METHADONE 300 OPIATES 300 PHENCYCLIDINE 25 TRICYCLIC ANTIDEPRESSANTS 1000 RESULTS ARE FOR MEDICAL PURPOSES ONLY. ALL URINE SPECIMENS WILL BE SAVED FOR 3 DAYS. IF CONFIRMATION OF A PRESUMPTIVE POSTIVE SCREEN RESULT IS DESIRED, CALL CHEMISTRY ([phone]) AND REQUEST URINE TO BE SENT TO REFERENCE LAB. FOR A LIST OF CLOSELY RELATED COMPOUNDS PLEASE CALL THE LAB. Lab Order: Ethyl Alcohol (ethanol); SPEC'M 05/30/16 21:48 Test: ETHYL ALCOHOL (ETHANOL); Value: 0.093; Range: 0.000-0.010; Abnormal: Above high normal; Units: %; Status: F Lab Order: Liver Profile; SPEC'M 05/30/16 21:48 Test: AST/SGOT; Value: 17; Range: 15-37; Units: U/L; Status: F Test: ALT/SGPT; Value: 32; Range: 12-78; Units: U/L; Status: F Test: ALKALINE PHOSPHATASE; Value: 83; Range: 45-117; Units: U/L; Status: F Test: BILIRUBIN,TOTAL; Value: 0.4; Range: 0.2-1.0; Units: MG/DL; Status: F Test: BILIRUBIN,DIRECT; Value: < 0.1; Range: 0.0-0.2; Units: MG/DL; Status: F Test: TOTAL PROTEIN; Value: 7.7; Range: 6.4-8.2; Units: GM/DL; Status: F Test: ALBUMIN; Value: 4.2; Range: 3.2-5.2; Units: GM/DL; Status: F Test: ALBUMIN/GLOBULIN RATIO; Value: 1.20; Range: 1.00-1.93; Status: F Lab Order: Salicylate Level; SPEC'M 05/30/16 21:48 Test: SALICYLATE LEVEL; Value: 2.3; Range: 5.0-30.0; Abnormal: Below low normal; Units: MG/DL; Status: F Lab Order: Thyroid Stimulating Hormone; SPEC'M 05/30/16 21:48 Test: THYROID STIMULATING HORMONE; Value: 0.852; Range: 0.358-3.740; Units: uIU/ML; Status: F Outcome: 05/30 23:57 Decision to Hospitalize by Provider. br1 05/31 02:17 Discharge Assessment: Patient awake, alert and oriented x 3. No cognitive and/or rw1 functional deficits noted. Patient verbalized understanding of disposition instructions. patient administered narcotics - no. The following High Risk Discharge criteria are identified: Admitted to Psych accompanied by tech, via wheelchair, with chart. Condition: stable. No special radiology studies were completed. Property removed, inventory done, secured in belongings bag- given to [facility] staff. 02:26 Patient left the ED. rw1 Signatures: Veronika Reilly RN RN jan Zecher, Calvin, Ana Harry RN, Reg Reg gb Catalina, Cristain Tabor,PHYSICIAN ASSISTANT PHYSICIAN ASSISTANT rw1 Pardeep Jimenez MD MD br1 Miriam Kwok, PSA PSA Dimple Guidry gr2 Pedro Samuel,Rhoda Vásquez RN, Reg Reg [id number] Caitlyn He RN RN cf2 Chart Complete MTDD
[2016-06-02 06:34] VITALS: BP 138/63
[2016-06-02] MEDS: NICOTINE 21MG/24HR 1 EA TRANSDERMAL TD SCH (08:31)
[2016-06-02] MEDS: OSELTAMIVIR PHOSPHATE 75 MG CAP (TAMIFLU) PO SCH (08:32)
[2016-06-02] MEDS: CitaloPRAM (CeleXA) 20 MG TAB PO SCH (08:32)
--- NOTE | 2016-06-02 11:46 | IPN ---
DATE: 06/01/2016 CHIEF COMPLAINT: Says feels bored. SUBJECTIVE: Seen for followup. Indicates has been doing okay, though somewhat vague on this, indicates he is depressed as well, elutes to having suicidal thoughts but no firm plans, then says feels bored, and suggest that is the reason he sleeps, is somewhat upset he is not on previous doses of medications, including Seroquel, though he is prescribed a total of 87.5 mg a day in divided doses, as needed. MENTAL STATUS EXAMINATION: Neat, cooperative. Mildly irritable, but with somewhat labile affect, coherent for the most part, vague on suicidal thoughts, denies any firm plans. He denies homicidal ideas, intents. Currently, no evidence of any psychosis. Cognition grossly intact. Judgment, insight are compromised. ASSESSMENT: Unspecified depressive disorder. Rule out major depressive disorder. Alcohol abuse. PLAN: Continue current care, obtain collateral information, and I would suggest that she use the Seroquel during the daytime, as needed. He is also to continue with the citalopram at 20 mg daily. He is to be encouraged to participate in activities in the unit. VITAL SIGNS: Blood pressure 124/70, pulse 77, temperature 96.4.
[2016-06-02] MEDS: QUEtiapine FUMARATE 12.5 MG HALF-TAB PO PRN (13:25)
[2016-06-02 18:00] VITALS: BP 133/63
[2016-06-02] MEDS: QUEtiapine FUMARATE 50 MG TAB PO PRN (20:16)
[2016-06-03 06:25] VITALS: BP 125/69
--- NOTE | 2016-06-03 07:01 | IPN ---
DATE: 06/02/2016 CHIEF COMPLAINTS: Says feels a bit "manic". SUBJECTIVE: Seen for followup. Indicates feels a bit "hyper", somewhat vague on this. Does say he had a decent night. Appetite is fairly good. MENTAL STATUS EXAMINATION: Neat. Cooperative. He is coherent. No agitation. Affect relatively broad. Says denies any thoughts of harming himself or anyone else. He does not currently appear internally preoccupied. No delusional ideations elicited. His judgment and insight are compromised. ASSESSMENT: Unspecified depressive disorder. Rule out major depressive disorder. Alcohol abuse. VITAL SIGNS: Blood pressure 138/63. Pulse 80. Temperature 97.2. PLAN: Continue current care and observations. He is encouraged to use the Seroquel that he has available as needed during the daytime. We will continue the rest of the observations. He will be seeing his assigned treatment team and psychiatrist tomorrow.
[2016-06-03] MEDS: OSELTAMIVIR PHOSPHATE 75 MG CAP (TAMIFLU) PO SCH (08:06)
[2016-06-03] MEDS: NICOTINE 21MG/24HR 1 EA TRANSDERMAL TD SCH (08:06)
[2016-06-03] MEDS: CitaloPRAM (CeleXA) 20 MG TAB PO SCH (08:06)
[2016-06-03] MEDS: QUEtiapine FUMARATE 12.5 MG HALF-TAB PO PRN ×2 (14:03→20:16)
--- NOTE | 2016-06-03 16:52 | IPNPDOC ---
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 He has a history of depression, anxiety, and "manic bipolar" who was previously medicated with Celexa and Seroquel. He admits to misuse of Adderall in his teen years. He reports worsening depression over the past few weeks. He states "I'm tired all the time, I don't do anything, I'm awkward, able to went to talk to me " in addition to mood fluctuations, sleep problems with vivid dreams, very low self-esteem, and intermittent suicidal ideation. As a child he was abandoned by his mother at the age of 2 and was raised by a father who traveled frequently for his job. VITAL SIGNS: See below. CURRENT MEDICATIONS: - Seroquel 25 mg by mouth daily at bedtime when necessary insomnia - Celexa 20 mg by mouth every morning - Seroquel 12.5 mg by mouth 3 times a day when necessary anxiety and agitation - Zyprexa 5 mg by mouth every 6 hours when necessary anxiety and agitation - Atarax 50 mg by mouth every 6 hours when necessary anxiety - Trazodone 50 mg by mouth daily at bedtime when necessary insomnia SUBJECTIVE: "I'm extremely angry and anxious." OBJECTIVE: Patient states that while in group he began to experience high levels of anger and anxiety related to the topic of group, which was the root of the patient's depression. He states that he left the room prior to sharing, as he does not feel he could share without losing his temper. He corrected himself to the medication room to "take something to calm down." He seemed open and trustful today and was able to talk about his issues specifically his sexual identity, anger, family, social experiences, as well as his past. He continues to be very critical of himself and his sexuality. He states his depression is 5/10 and has not improved. He admits that over the weekend he did have some extra energy that he states happens when he starts taking citalopram as this is happening in the past. He continues to have vivid dreams relating to injuring others, his sexuality, and his relationship with his . He states this has not interrupted his sleep and sleeps through the night. He denies issues with eating. He denies any other side effects to medications. MENTAL STATUS EXAMINATION: Patient is dressed in hospital clothing, he is sitting for entire interview. He does not maintain good eye contact, exhibits psychomotor retardation, and is visibly shaking. He is cooperative and open. He is alert and oriented 3. He is talkative, speaking in a normal rate with fluctuations of soft and strong tones. He admits his mood is angry and anxious, his affect is restricted but consistent with his mood. His thought processes are linear goal-directed. He denies delusions or hallucinations. He is able to contract for safety on the unit. His insight and judgment are impaired. Attention is appropriate. His recent, remote, and immediate memory are intact. His intellectual functioning remains fair. ASSESSMENT: 1. Unspecified depressive disorder. 2. Rule out major depression. 3. Alcohol abuse. MANAGEMENT PLAN: 1. Discontinue Seroquel 50 mg by mouth daily at bedtime when necessary insomnia. 2. Begin Seroquel 25 mg by mouth daily at bedtime when necessary insomnia. 3. Continue Celexa 20 mg by mouth every morning. 4. Continue Seroquel 12.5 mg by mouth 3 times a day when necessary anxiety and agitation. 5. Continue Zyprexa 5 mg by mouth every 6 hours when necessary anxiety and agitation. 6. Continue Atarax 50 mg by mouth every 6 hours when necessary anxiety. 7. Continue trazodone 50 mg by mouth daily at bedtime when necessary insomnia. 8. Continue medication management in addition to individual and group therapies. Vital Signs Vital Signs Date Time Temp Pulse Resp B/P Pulse Ox O2 Delivery O2 Flow Rate FiO2 06/03/16 06:25 96.6 83 16 125/69 Current Medications Current Medications Acetaminophen (Tylenol Tab) 650 mg Q6HP PRN PO HEADACHE or DISCOMFORT; Start at 00:15; Stop 06/30/16 at 00:14 Al Hydrox/Mg Hydrox/Simethicone (Mylanta) 30 ml Q4HP PRN PO HEARTBURN/ INDIGESTION; Start 05/31/16 at 00:15; Stop 06/30/16 at 00:14 Citalopram Hydrobromide (CeleXA) 20 mg QAM PO Last administered on 06/03/16 08 :06; Start 06/01/16 at 09:00; Stop 07/01/16 at 08:59 Home Med (Med Rec Complete!) ASDIRECTED XX ; Start 05/31/16 at 00:45; Stop 02/04 at 00:45; Status DC Hydroxyzine HCl (Atarax) 50 mg Q6HP PRN PO ANXIETY; Start 05/31/16 at 04:30; Stop 06/30/16 at 04:29 Magnesium Hydroxide (Milk Of Magnesia) 30 ml DAILYPRN PRN PO CONSTIPATION; Start 05/31/16 at 00:15; Stop 06/30/16 at 00:14 Nicotine (Nicoderm Cq 21mg) 1 patch DAILY TD Last administered on 06/03/16 08: 06; Start 05/31/16 at 09:00; Stop 06/30/16 at 08:59 Olanzapine (ZyPREXA) 5 mg Q6HP PRN PO ANXIETY/AGITATION; Start 05/31/16 at 12: 15; Stop 06/30/16 at 12:14 Oseltamivir Phosphate (Tamiflu) 75 mg DAILY PO Last administered on 06/03/16 08:06; Start 05/31/16 at 09:00; Stop 06/09/16 at 12:00 Quetiapine Fumarate (SEROquel) 12.5 mg TID PRN PO anxiety/agitation Last administered on 06/03/16 14:03; Start 05/31/16 at 12:15; Stop 06/30/16 at 12:14 Quetiapine Fumarate (SEROquel) 25 mg QHS PRN PO INSOMNIA; Start 06/03/16 at 09: 45; Stop 07/03/16 at 09:44 Quetiapine Fumarate (SEROquel) 50 mg QHSP PRN PO INSOMNIA Last administered on 06/02/16 20:16; Start 06/01/16 at 09:00; Stop 06/03/16 at 09:41; Status DC Trazodone HCl (Desyrel) 50 mg QHSP PRN PO INSOMNIA; Start 05/31/16 at 00:15; Stop 06/30/16 at 00:14 Allergies Coded Allergies: No Known Allergies (Unverified , 05/31/16) GME ATTESTATION GME ATTESTATION My preceptor for this patient encounter was Dr. Gilman, he was physically present in the building during the encounter and was fully available. As needed , all aspects of the patient interview, examination, medical decision making process, and medical care plan development were reviewed and approved by the preceptor. Preceptor is aware and concurs with the plan as stated in the body of this note and will attest to such by his/her cosignature. MIRIAN BRADEN Jun 03, 2016 16:52
[2016-06-03 18:00] VITALS: BP 123/60
[2016-06-03] MEDS: OLANZapine 5 MG TAB PO PRN (18:42)
[2016-06-04 07:17] VITALS: BP 143/66
[2016-06-04] MEDS: NICOTINE 21MG/24HR 1 EA TRANSDERMAL TD SCH (08:33)
[2016-06-04] MEDS: CitaloPRAM (CeleXA) 20 MG TAB PO SCH (08:33)
[2016-06-04] MEDS: OSELTAMIVIR PHOSPHATE 75 MG CAP (TAMIFLU) PO SCH (08:33)
[2016-06-04] MEDS: QUEtiapine FUMARATE 12.5 MG HALF-TAB PO PRN (11:11)
--- NOTE | 2016-06-04 13:12 | IPNPDOC ---
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 He has a history of depression, anxiety, and "manic bipolar" who was previously medicated with Celexa and Seroquel. He admits to misuse of Adderall in his teen years. He reports worsening depression over the past few weeks. He states "I'm tired all the time, I don't do anything, I'm awkward, able to went to talk to me " in addition to mood fluctuations, sleep problems with vivid dreams, very low self-esteem, and intermittent suicidal ideation. As a child he was abandoned by his mother at the age of 2 and was raised by a father who traveled frequently for his job. VITAL SIGNS: See below. CURRENT MEDICATIONS: - Lamictal 25 mg by mouth daily at bedtime - Seroquel 25 mg by mouth daily at bedtime when necessary insomnia - Celexa 20 mg by mouth every morning - Seroquel 12.5 mg by mouth 3 times a day when necessary anxiety and agitation - Zyprexa 5 mg by mouth every 6 hours when necessary anxiety and agitation - Atarax 50 mg every 6 hours when necessary anxiety - Trazodone 50 mg by mouth daily at bedtime when necessary insomnia SUBJECTIVE: "I'm still angry and depressed." OBJECTIVE: Patient states that he continues to experience anxiety and agitation. He states taking a when necessary Seroquel 12.5 mg earlier today in order to ease his anxiety and anger. He continues to be open trustful talking today continuing to speak about his sexual identity, anger, family and his past. He continues to be critical of himself as well as sexuality and rates his depression as 5/10 which is not improved since yesterday. He denies any vivid dreams last night and states that he slept through the night. He denies issues with eating and denies any side effects to medications. MENTAL STATUS EXAMINATION: Patient is dressed in hospital clothing, and sits for an the entire interview. He exhibits decreased psychomotor activity and maintains fair eye contact. He is cooperative and open, alert and oriented 3. He someone talkative but talks slowly and soft. He states that his mood is improving but still rates his depression as 5/10 and continues to be upset today. Neck is consistent with his mood. His thought processes continue to be linear and goal-directed. He denies delusions or hallucinations. He is able to contract for safety on the unit. His insight and judgment remained fair. His attention is appropriate. His recent, remote, immediate memory are intact. His intellectual function remains fair. ASSESSMENT: 1. Unspecified depressive disorder 2. Rule out major depression 3. Alcohol abuse MANAGEMENT PLAN: 1. Start Lamictal 25 mg by mouth daily at bedtime. 2. Continue Seroquel 25 mg by mouth daily at bedtime when necessary insomnia. 3. Continue Celexa 20 mg by mouth every morning. 4. Continue Seroquel 12.5 mg by mouth 3 times a day when necessary anxiety and agitation. 5. Continue Zyprexa 5 mg by mouth every 6 hours when necessary anxiety and agitation. 6. Continue Atarax 50 mg by mouth every 6 hours when necessary anxiety. 7. Continue Trazodone 50 mg by mouth daily at bedtime when necessary insomnia. 8. Continue medication management in addition to individual group therapies. Vital Signs Vital Signs Date Time Temp Pulse Resp B/P Pulse Ox O2 Delivery O2 Flow Rate FiO2 06/04/16 07:17 96.5 79 16 143/66 06/03/16 18:00 Room Air Current Medications Current Medications Acetaminophen (Tylenol Tab) 650 mg Q6HP PRN PO HEADACHE or DISCOMFORT; Start at 00:15; Stop 06/30/16 at 00:14 Al Hydrox/Mg Hydrox/Simethicone (Mylanta) 30 ml Q4HP PRN PO HEARTBURN/ INDIGESTION; Start 05/31/16 at 00:15; Stop 06/30/16 at 00:14 Citalopram Hydrobromide (CeleXA) 20 mg QAM PO Last administered on 06/04/16t 08 :33; Start 06/01/16 at 09:00; Stop 07/01/16 at 08:59 Home Med (Med Rec Complete!) ASDIRECTED XX ; Start 05/31/16 at 00:45; Stop 02/04 at 00:45; Status DC Hydroxyzine HCl (Atarax) 50 mg Q6HP PRN PO ANXIETY; Start 05/31/16 at 04:30; Stop 06/30/16 at 04:29 Lamotrigine (LaMICtal) 25 mg QHS PO ; Start 06/04/16 at 21:00; Stop 07/04/16 at 20:59 Magnesium Hydroxide (Milk Of Magnesia) 30 ml DAILYPRN PRN PO CONSTIPATION; Start 05/31/16 at 00:15; Stop 06/30/16 at 00:14 Nicotine (Nicoderm Cq 21mg) 1 patch DAILY TD Last administered on 06/04/16 08: 33; Start 05/31/16 at 09:00; Stop 06/30/16 at 08:59 Olanzapine (ZyPREXA) 5 mg Q6HP PRN PO ANXIETY/AGITATION Last administered on 18:42; Start 05/31/16 at 12:15; Stop 06/30/16 at 12:14 Oseltamivir Phosphate (Tamiflu) 75 mg DAILY PO Last administered on 06/04/16 08:33; Start 05/31/16 at 09:00; Stop 06/09/16 at 12:00 Quetiapine Fumarate (SEROquel) 12.5 mg TID PRN PO anxiety/agitation Last administered on 06/04/16 11:11; Start 05/31/16 at 12:15; Stop 06/30/16 at 12:14 Quetiapine Fumarate (SEROquel) 25 mg QHS PRN PO INSOMNIA; Start 06/03/16 at 09: 45; Stop 07/03/16 at 09:44 Quetiapine Fumarate (SEROquel) 50 mg QHSP PRN PO INSOMNIA Last administered on 06/02/16 20:16; Start 06/01/16 at 09:00; Stop 06/03/16 at 09:41; Status DC Trazodone HCl (Desyrel) 50 mg QHSP PRN PO INSOMNIA; Start 05/31/16 at 00:15; Stop 06/30/16 at 00:14 Allergies Coded Allergies: No Known Allergies (Unverified , 05/31/16) GME ATTESTATION GME ATTESTATION My preceptor for this patient encounter was Dr. Gilman, he was physically present in the building during the encounter and was fully available. As needed , all aspects of the patient interview, examination, medical decision making process, and medical care plan development were reviewed and approved by the preceptor. Preceptor is aware and concurs with the plan as stated in the body of this note and will attest to such by his/her cosignature. MIRIAN BRADEN Jun 04, 2016 13:12
[2016-06-04] MEDS: OLANZapine 5 MG TAB PO PRN (15:32)
[2016-06-04 18:00] VITALS: BP 122/80
[2016-06-04] MEDS: QUEtiapine FUMARATE 25 MG TAB PO PRN (20:25)
[2016-06-04] MEDS: lamoTRIgine 25 MG TAB PO SCH (20:25)
[2016-06-04] MEDS: traZODone 50 MG TAB PO PRN (21:09)
[2016-06-04 21:36] VITALS: BP 122/80
[2016-06-05 06:47] VITALS: BP 136/70
[2016-06-05] MEDS: OSELTAMIVIR PHOSPHATE 75 MG CAP (TAMIFLU) PO SCH (08:19)
[2016-06-05] MEDS: CitaloPRAM (CeleXA) 20 MG TAB PO SCH (08:19)
[2016-06-05] MEDS: NICOTINE 21MG/24HR 1 EA TRANSDERMAL TD SCH (08:19)
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
[2016-06-05] MEDS: QUEtiapine FUMARATE 12.5 MG HALF-TAB PO PRN ×2 (12:02→16:23)
[2016-06-05 18:00] VITALS: BP 132/66
[2016-06-05] MEDS: lamoTRIgine 25 MG TAB PO SCH (20:16)
[2016-06-05] MEDS: QUEtiapine FUMARATE 25 MG TAB PO PRN (20:16)
[2016-06-05] MEDS: traZODone 50 MG TAB PO PRN ×2 (20:16→21:46)
[2016-06-06 07:00] VITALS: BP 119/68
[2016-06-06] MEDS: CitaloPRAM (CeleXA) 20 MG TAB PO SCH (08:23)
[2016-06-06] MEDS: OSELTAMIVIR PHOSPHATE 75 MG CAP (TAMIFLU) PO SCH (08:23)
[2016-06-06] MEDS: NICOTINE 21MG/24HR 1 EA TRANSDERMAL TD SCH (08:23)
--- NOTE | 2016-06-06 11:40 | IPNPDOC ---
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 He has a history of depression, anxiety, and "manic bipolar" who was previously medicated with Celexa and Seroquel. He admits to misuse of Adderall in his teen years. He reports worsening depression over the past few weeks. He states "I'm tired all the time, I don't do anything, I'm awkward, able to went to talk to me " in addition to mood fluctuations, sleep problems with vivid dreams, very low self-esteem, and intermittent suicidal ideation. As a child he was abandoned by his mother at the age of 2 and was raised by a father who traveled frequently for his job. VITAL SIGNS: See below. CURRENT MEDICATIONS: - Lamictal 25 mg by mouth daily at bedtime - Seroquel 25 mg by mouth daily at bedtime when necessary insomnia - Seroquel 12.5 mg by mouth 3 times a day when necessary anxiety and agitation - Celexa 20 mg by mouth every morning - Zyprexa 5 mg by mouth every 6 hours when necessary anxiety and agitation - Atarax 50 mg by mouth every 6 hours when necessary anxiety - Trazodone 50 mg by mouth daily at bedtime when necessary insomnia SUBJECTIVE: "I'm still feeling somewhat depressed and anxious" OBJECTIVE: Patient continues to experience depressive symptoms and anxiety but continues to be opening trustful today. Although he states that he finds it difficult to be completely honest with certified ophthalmic medical technician, he admits that he feels he is able to be honest here on the unit. He continues to experience anhedonia, fatigue, isolation, anxiety and agitation; he rates his depression at 3-4/10. He admits to continuing to attending groups and feels that these sessions are helping him with better focusing his frustrations into productive means, i.e. coloring and drawing or speaking in positive manners. 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 He elaborates stating "going to the doctor is seen as being weak." He admits that rejection is taken very hard by him. He opened more today about his past stating reasons that he believes his depression is at the point it has reached as well as parts of his life that contributed to his insecurities with his sexual identity and with making connections with people. He denies issues with sleeping or any further vivid dreams, he also denies changes to his appetite. He states the only side effect from medications that he noticed is feeling more drowsy throughout the day otherwise denies any medication side effects. MENTAL STATUS EXAMINATION: Patient is dressed in hospital clothing and is well- groomed. He sits for the entire interview. His eye contact is fair and exhibits mild psychomotor retardation. He is cooperative and open. He is alert and oriented 3. He is opening talkative but speaks at a normal rate and tone. He admits that his mood is anxious and depressed, although he believes he is beginning to make some improvements. His affect is restricted but mostly consistent with his mood. His thought processes continue to be linear goal- directed, he denies delusions or hallucinations. He is able to contract for safety on the unit. His insight and judgment are fair. Attention is appropriate. His recent, remote, immediate memory are intact. His intellectual functioning remains fair. ASSESSMENT: 1. Unspecified depressive disorder 2. Rule out major depression 3. Alcohol abuse MANAGEMENT PLAN: 1. Continue Lamictal 25 mg by mouth daily at bedtime. 2. Continue Seroquel 25 mg by mouth daily at bedtime when necessary insomnia. 3. Continue Seroquel 12.5 mg by mouth 3 times a day when necessary anxiety and agitation. 4. Continue Celexa 20 mg by mouth every morning. 5. Continue Zyprexa 5 mg by mouth every 6 hours when necessary anxiety and agitation 6. Continue Atarax 50 mg by mouth every 6 hours when necessary anxiety. 7. Continue trazodone 50 mg by mouth daily at bedtime when necessary insomnia. 8. Continue medication management in addition to individual and group therapies. Vital Signs Vital Signs Date Time Temp Pulse Resp B/P Pulse Ox O2 Delivery O2 Flow Rate FiO2 06/06/16 07:00 96.4 90 18 119/68 06/04/16 21:36 Current Medications Current Medications Acetaminophen (Tylenol Tab) 650 mg Q6HP PRN PO HEADACHE or DISCOMFORT; Start at 00:15; Stop 06/30/16 at 00:14 Al Hydrox/Mg Hydrox/Simethicone (Mylanta) 30 ml Q4HP PRN PO HEARTBURN/ INDIGESTION; Start 05/31/16 at 00:15; Stop 06/30/16 at 00:14 Citalopram Hydrobromide (CeleXA) 20 mg QAM PO Last administered on 06/06/16 08 :23; Start 06/01/16 at 09:00; Stop 07/01/16 at 08:59 Home Med (Med Rec Complete!) ASDIRECTED XX ; Start 05/31/16 at 00:45; Stop 02/04 at 00:45; Status DC Hydroxyzine HCl (Atarax) 50 mg Q6HP PRN PO ANXIETY; Start 05/31/16 at 04:30; Stop 06/30/16 at 04:29 Lamotrigine (LaMICtal) 25 mg QHS PO Last administered on 06/05/16 20:16; Start 06/04/16 at 21:00; Stop 07/04/16 at 20:59 Magnesium Hydroxide (Milk Of Magnesia) 30 ml DAILYPRN PRN PO CONSTIPATION; Start 05/31/16 at 00:15; Stop 06/30/16 at 00:14 Nicotine (Nicoderm Cq 21mg) 1 patch DAILY TD Last administered on 06/06/16 08: 23; Start 05/31/16 at 09:00; Stop 06/30/16 at 08:59 Olanzapine (ZyPREXA) 5 mg Q6HP PRN PO ANXIETY/AGITATION Last administered on 15:32; Start 05/31/16 at 12:15; Stop 06/30/16 at 12:14 Oseltamivir Phosphate (Tamiflu) 75 mg DAILY PO Last administered on 06/06/16 08:23; Start 05/31/16 at 09:00; Stop 06/09/16 at 12:00 Quetiapine Fumarate (SEROquel) 12.5 mg TID PRN PO anxiety/agitation Last administered on 06/05/16 16:23; Start 05/31/16 at 12:15; Stop 06/30/16 at 12:14 Quetiapine Fumarate (SEROquel) 25 mg QHS PRN PO INSOMNIA Last administered on 20:16; Start 06/03/16 at 09:45; Stop 07/03/16 at 09:44 Quetiapine Fumarate (SEROquel) 50 mg QHSP PRN PO INSOMNIA Last administered on 06/02/16 20:16; Start 06/01/16 at 09:00; Stop 06/03/16 at 09:41; Status DC Trazodone HCl (Desyrel) 50 mg QHSP PRN PO INSOMNIA Last administered on 21:46; Start 05/31/16 at 00:15; Stop 06/30/16 at 00:14 Allergies Coded Allergies: No Known Allergies (Unverified , 05/31/16) GME ATTESTATION GME ATTESTATION My preceptor for this patient encounter was Dr. Gilman, he was physically present in the building during the encounter and was fully available. As needed , all aspects of the patient interview, examination, medical decision making process, and medical care plan development were reviewed and approved by the preceptor. Preceptor is aware and concurs with the plan as stated in the body of this note and will attest to such by his/her cosignature. MIRIAN BRADEN Jun 06, 2016 11:40
[2016-06-06] MEDS: QUEtiapine FUMARATE 12.5 MG HALF-TAB PO PRN ×2 (12:22→16:23)
[2016-06-06 18:00] VITALS: BP 128/57
[2016-06-06] MEDS: QUEtiapine FUMARATE 25 MG TAB PO PRN (21:03)
[2016-06-06] MEDS: lamoTRIgine 25 MG TAB PO SCH (21:03)
[2016-06-06] MEDS: traZODone 50 MG TAB PO PRN (21:03)
[2016-06-07 06:15] VITALS: BP 113/64
[2016-06-07] MEDS: OSELTAMIVIR PHOSPHATE 75 MG CAP (TAMIFLU) PO SCH (08:28)
[2016-06-07] MEDS: CitaloPRAM (CeleXA) 20 MG TAB PO SCH (08:28)
[2016-06-07] MEDS: NICOTINE 21MG/24HR 1 EA TRANSDERMAL TD SCH (08:28)
--- NOTE | 2016-06-07 13:23 | IPNPDOC ---
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 He has a history of depression, anxiety, and "manic bipolar" who was previously medicated with Celexa and Seroquel. He admits to misuse of Adderall in his teen years. He reports worsening depression over the past few weeks. He states "I'm tired all the time, I don't do anything, I'm awkward, able to went to talk to me " in addition to mood fluctuations, sleep problems with vivid dreams, very low self-esteem, and intermittent suicidal ideation. As a child he was abandoned by his mother at the age of 2 and was raised by a father who traveled frequently for his job. VITAL SIGNS: See below. CURRENT MEDICATIONS: - Lamictal 25 mg by mouth daily at bedtime - Seroquel 25 mg by mouth daily at bedtime when necessary insomnia - Celexa 20 mg by mouth every morning - Seroquel 12.5 mg by mouth 3 times a day when necessary anxiety and agitation - Zyprexa 5 mg by mouth every 6 hours when necessary anxiety and agitation - Atarax 50 mg by mouth every 6 hours when necessary anxiety - Trazodone 50 mg by mouth daily at bedtime when necessary insomnia SUBJECTIVE: "I still feel depressed and anxious" OBJECTIVE: Today patient is continuing to experience depressive symptoms and anxiety. He continues to be open and chest wall today. He continues with anhedonia, fatigue, isolation, agitation, anxiety, and continues to have cognitive distortions when he allows his mind to wander. He continues to attend groups and states that the sessions are helping him to better focused his frustrations. He admits that other patients on the floor very open and accepting of him and his sexuality which has helped relieve some of his anxiety regarding this. He continues to make connections with new people, but states that when he leaves here he probably will not continue to talk to other patients that he is medically clear him for. He is hopeful however at that other people will accept him as they have here after his discharge. He denies any issues with sleeping or further vivid dreams, changes or issues at this appetite, or any side effects to medications except for the feeling of drowsiness in the morning. MENTAL STATUS EXAMINATION: Patient is dressed in hospital clothing and well groomed, he sits for the entire interview. His eye contact remains fair and he still exhibits mild psychomotor retardation. He is cooperative and open. He is alert and oriented 3. He is open and talkative speaking a normal rate and tone. His mood he admits continues to be anxious and depressed; he does believe that he is seeing some improvements. Affect continues to be restricted but is consistent with mood. His thought processes continued to be linear goal- directed. He denies delusions or hallucinations. He is able to contract for safety on the unit today. His insight and judgment remained fair. His attention is appropriate. His recent, remote, and immediate memory are intact. His intellectual functioning remains fair ASSESSMENT: 1. Unspecified depressive disorder 2. Rule out major depression 3. Alcohol abuse MANAGEMENT PLAN: 1. Continue Lamictal 25 mg by mouth daily at bedtime. 2. Continue Seroquel 25 mg by mouth daily at bedtime when necessary insomnia. 3. Continue Seroquel 12.5 mg by mouth 3 times a day when necessary anxiety and agitation. 4. Continue Celexa 20 mg by mouth every morning. 5. Continue Zyprexa 5 mg by mouth every 6 hours when necessary anxiety and agitation. 6. Continue Atarax 50 mg by mouth every 6 hours when necessary anxiety. 7. Continue Trazodone 50 mg by mouth daily at bedtime when necessary insomnia. 8. Continue medication management in addition to individual group therapies. Vital Signs Vital Signs Date Time Temp Pulse Resp B/P Pulse Ox O2 Delivery O2 Flow Rate FiO2 06/07/16 06:15 98.4 93 18 113/64 06/04/16 21:36 Current Medications Current Medications Acetaminophen (Tylenol Tab) 650 mg Q6HP PRN PO HEADACHE or DISCOMFORT; Start at 00:15; Stop 06/30/16 at 00:14 Al Hydrox/Mg Hydrox/Simethicone (Mylanta) 30 ml Q4HP PRN PO HEARTBURN/ INDIGESTION; Start 05/31/16 at 00:15; Stop 06/30/16 at 00:14 Citalopram Hydrobromide (CeleXA) 20 mg QAM PO Last administered on 06/07/16 08 :28; Start 06/01/16 at 09:00; Stop 07/01/16 at 08:59 Home Med (Med Rec Complete!) ASDIRECTED XX ; Start 05/31/16 at 00:45; Stop 02/04 at 00:45; Status DC Hydroxyzine HCl (Atarax) 50 mg Q6HP PRN PO ANXIETY; Start 05/31/16 at 04:30; Stop 06/30/16 at 04:29 Lamotrigine (LaMICtal) 25 mg QHS PO Last administered on 06/06/16 21:03; Start 06/04/16 at 21:00; Stop 07/04/16 at 20:59 Magnesium Hydroxide (Milk Of Magnesia) 30 ml DAILYPRN PRN PO CONSTIPATION; Start 05/31/16 at 00:15; Stop 06/30/16 at 00:14 Nicotine (Nicoderm Cq 21mg) 1 patch DAILY TD Last administered on 06/07/16 08: 28; Start 05/31/16 at 09:00; Stop 06/30/16 at 08:59 Olanzapine (ZyPREXA) 5 mg Q6HP PRN PO ANXIETY/AGITATION Last administered on 15:32; Start 05/31/16 at 12:15; Stop 06/30/16 at 12:14 Oseltamivir Phosphate (Tamiflu) 75 mg DAILY PO Last administered on 06/07/16 08:28; Start 05/31/16 at 09:00; Stop 06/09/16 at 12:00 Quetiapine Fumarate (SEROquel) 12.5 mg TID PRN PO anxiety/agitation Last administered on 06/06/16 16:23; Start 05/31/16 at 12:15; Stop 06/30/16 at 12:14 Quetiapine Fumarate (SEROquel) 25 mg QHS PRN PO INSOMNIA Last administered on 21:03; Start 06/03/16 at 09:45; Stop 07/03/16 at 09:44 Quetiapine Fumarate (SEROquel) 50 mg QHSP PRN PO INSOMNIA Last administered on 06/02/16 20:16; Start 06/01/16 at 09:00; Stop 2/13/17 at 09:41; Status DC Trazodone HCl (Desyrel) 50 mg QHSP PRN PO INSOMNIA Last administered on t 21:03; Start 05/31/16 at 00:15; Stop 06/30/16 at 00:14 Allergies Coded Allergies: No Known Allergies (Unverified , 05/31/16) GME ATTESTATION GME ATTESTATION My preceptor for this patient encounter was Dr. Gilman, he was physically present in the building during the encounter and was fully available. As needed , all aspects of the patient interview, examination, medical decision making process, and medical care plan development were reviewed and approved by the preceptor. Preceptor is aware and concurs with the plan as stated in the body of this note and will attest to such by his/her cosignature. MIRIAN BRADEN Jun 07, 2016 13:22 Gustavo Gilman MD Jun 07, 2016 15:37
[2016-06-07] MEDS: QUEtiapine FUMARATE 12.5 MG HALF-TAB PO PRN ×2 (14:10→19:10)
[2016-06-07] MEDS: hydrOXYzine 50 MG TAB PO PRN (15:34)
[2016-06-07 18:00] VITALS: BP 125/66
[2016-06-07] MEDS: lamoTRIgine 25 MG TAB PO SCH (20:42)
[2016-06-07] MEDS: QUEtiapine FUMARATE 25 MG TAB PO PRN (20:42)
[2016-06-07] MEDS: traZODone 50 MG TAB PO PRN (20:42)
[2016-06-08 06:51] VITALS: BP 116/67
[2016-06-08] MEDS: CitaloPRAM (CeleXA) 20 MG TAB PO SCH (08:28)
[2016-06-08] MEDS: OSELTAMIVIR PHOSPHATE 75 MG CAP (TAMIFLU) PO SCH (08:28)
[2016-06-08] MEDS: NICOTINE 21MG/24HR 1 EA TRANSDERMAL TD SCH (08:28)
[2016-06-08] MEDS: QUEtiapine FUMARATE 12.5 MG HALF-TAB PO PRN (16:00)
[2016-06-08 18:00] VITALS: BP 123/67
[2016-06-08] MEDS: hydrOXYzine 50 MG TAB PO PRN (18:06)
[2016-06-08] MEDS: traZODone 50 MG TAB PO PRN (20:48)
[2016-06-08] MEDS: lamoTRIgine 25 MG TAB PO SCH (20:48)
[2016-06-08] MEDS: QUEtiapine FUMARATE 25 MG TAB PO PRN (20:49)
[2016-06-09 06:24] VITALS: BP 100/52
[2016-06-09] MEDS: OSELTAMIVIR PHOSPHATE 75 MG CAP (TAMIFLU) PO SCH (08:21)
[2016-06-09] MEDS: CitaloPRAM (CeleXA) 20 MG TAB PO SCH (08:21)
[2016-06-09] MEDS: NICOTINE 21MG/24HR 1 EA TRANSDERMAL TD SCH (08:21)
[2016-06-09] MEDS: QUEtiapine FUMARATE 12.5 MG HALF-TAB PO PRN (11:20)
[2016-06-09] MEDS: hydrOXYzine 50 MG TAB PO PRN (17:32)
[2016-06-09 18:00] VITALS: BP 120/58
[2016-06-09] MEDS: traZODone 50 MG TAB PO PRN (20:16)
[2016-06-09] MEDS: lamoTRIgine 25 MG TAB PO SCH (20:16)
[2016-06-09] MEDS: QUEtiapine FUMARATE 25 MG TAB PO PRN (20:16)
[2016-06-10 06:40] VITALS: BP 134/63
[2016-06-10] MEDS: NICOTINE 21MG/24HR 1 EA TRANSDERMAL TD SCH (08:49)
[2016-06-10] MEDS: CitaloPRAM (CeleXA) 20 MG TAB PO SCH (08:49)
[2016-06-10] MEDS: QUEtiapine FUMARATE 12.5 MG HALF-TAB PO PRN (13:02)
[2016-06-10 18:00] VITALS: BP 161/86
[2016-06-10] MEDS: QUEtiapine FUMARATE 25 MG TAB PO PRN (20:56)
[2016-06-10] MEDS: lamoTRIgine 25 MG TAB PO SCH (20:56)
[2016-06-10] MEDS: traZODone 50 MG TAB PO PRN (20:56)
[2016-06-11 06:34] VITALS: BP 152/67
--- NOTE | 2016-06-11 08:11 | IPN ---
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 MEDICATIONS: - Lamictal 25 mg by mouth nightly - Seroquel 25 mg by mouth nightly - Celexa 20 mg by mouth every morning - Seroquel 12.5 mg by mouth three times a day - trazodone 50 mg by mouth nightly as needed for insomnia SUBJECTIVE: "I feel better." OBJECTIVE: Patient is improving slowly as he continues to feel depressed, but he is more insightful. He is interacting with other patients and staff. He is motivated for treatment. He is participating in all psychotherapeutic activities. Patient is denying auditory or visual hallucinations or delusions. Patient is able to contract for safety during the interview and denies suicidal or homicidal ideation here in the unit. His insight and judgment has improved. MENTAL STATUS EXAMINATION: Patient is dressed in [facility]. Patient is cooperative during the exam. Speech is normal in rate, volume, articulation, is coherent and spontaneous. Mood is depressed and anxious, but improving. Affect is restricted, but also improved. No delusions or hallucinations. Memory is fair. Patient is fully oriented. Associations are intact. Thinking is logical. Thought content is appropriate. Patient denies suicidal or homicidal ideation during the interview. Insight and judgment is fair. ASSESSMENT: 1. Major depressive disorder. 2. Alcohol abuse. PLAN: 1. Increase Lamictal to 25 mg by mouth twice a day. 2. Continue Seroquel 25 mg by mouth nightly as needed for insomnia. 3. Continue with Seroquel 12.5 mg by mouth three times a day as needed for insomnia. 4. Continue Celexa 20 mg by mouth every morning. 5. Continue with trazodone 50 mg by mouth nightly as needed for insomnia.
[2016-06-11] MEDS: CitaloPRAM (CeleXA) 20 MG TAB PO SCH (08:16)
[2016-06-11] MEDS: lamoTRIgine 25 MG TAB PO SCH ×2 (08:16→20:50)
[2016-06-11] MEDS: NICOTINE 21MG/24HR 1 EA TRANSDERMAL TD SCH (08:17)
[2016-06-11] MEDS: QUEtiapine FUMARATE 12.5 MG HALF-TAB PO PRN (13:26)
[2016-06-11 18:00] VITALS: BP 121/62
[2016-06-11] MEDS: traZODone 50 MG TAB PO PRN (20:51)
[2016-06-11] MEDS: QUEtiapine FUMARATE 25 MG TAB PO PRN (20:51)
--- NOTE | 2016-06-11 21:22 | IPN ---
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 MEDICATIONS: - Lamictal 25 mg by mouth twice a day - Seroquel 12.5 mg by mouth three times a day plus 25 mg by mouth nightly - Celexa 20 mg by mouth every morning - trazodone 50 mg by mouth nightly SUBJECTIVE: "I'm feeling much better." OBJECTIVE: Patient is significantly improved from admission. Patient is interacting well with other patients and staff. Patient is able to smile, has been motivated, and is going to all psychotherapeutic activities of the unit. Patient reports significant benefit interacting in group, feels other patients are supportive, he has been able to disclose his problems to other patients and staff. Patient is denying side effect from medication. MENTAL STATUS EXAMINATION: Patient is dressed in [facility]. Patient is calm and cooperative. Speech is normal in rate, volume, articulation, is coherent and is spontaneous. Eye contact is fair. Mood is slightly depressed and anxious, but significantly improved from admission. No evidence of psychotic symptoms. No auditory or visual hallucinations. No delusions. Memory is fair. Patient is fully oriented. Associations are intact. Thinking is logical. Thought content is appropriate. Patient denies suicidal or homicidal ideation. Insight and judgment is fair. DIAGNOSES: 1. Major depressive disorder. 2. Alcohol abuse. PLAN: 1. Continue with Lamictal 25 mg by mouth twice a day. 2. Continue with Seroquel 12.5 mg by mouth three times a day plus 25 mg by mouth nightly as needed for insomnia. 3. Continue with Celexa 20 mg by mouth every morning. 4. Continue with trazodone 50 mg by mouth nightly as needed for insomnia. 5. Will discharge tomorrow if patient continues improving.
[2016-06-12 06:41] VITALS: BP 138/65
[2016-06-12] MEDS: lamoTRIgine 25 MG TAB PO SCH (08:12)
[2016-06-12] MEDS: CitaloPRAM (CeleXA) 20 MG TAB PO SCH (08:12)
[2016-06-12] MEDS: NICOTINE 21MG/24HR 1 EA TRANSDERMAL TD SCH (08:13)
[2016-06-12] MEDS ORDERED: NICO21PAT TD (08:39)
[2016-06-12] MEDS ORDERED: CELE20TA PO (10:15)
[2016-06-12] MEDS ORDERED: QUET1TAB7 PO ×2 (10:15)
[2016-06-12] MEDS ORDERED: LAMI25TA PO (10:15)
[2016-06-12] MEDS ORDERED: TRAZO50TA PO (10:15)
[2016-06-12] MEDS: QUEtiapine FUMARATE 12.5 MG HALF-TAB PO PRN (11:42)
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
== END 2016-06-12 12:05 | disposition home or self-care (01) | DRG 881 ==
LOC: M ED 21:06 → M PSY 05-31 02:33
PROVIDERS: ADMIT Psychiatry & Neurology Psychiatry; ATTEND Psychiatry & Neurology Psychiatry
DX: F32.9 Major depressive disorder, single episode, unspecified (principal); F17.200 Nicotine dependence, unspecified, uncomplicated; G47.00 Insomnia, unspecified

== ENCOUNTER 2016-12-03 09:50 | Inpatient (IN) | payer OTHER ==
[~2016-12-03] VITALS: Ht 177.8 cm; Wt 105.1 kg
[~2016-12-03 09:50] MED LIST: ACET1TAB17 PO; CELE20TA PO; LAMI25TA PO; NICO21PAT TD; OCEA0.654; QUET1TAB7 PO; TRAZO50TA PO
[2016-12-03] MEDS ORDERED: CELE40TA PO (10:04)
[2016-12-03] MEDS ORDERED: CELE20TA PO (10:04)
[2016-12-03] MEDS ORDERED: ABIL1TAB11 PO (10:04)
[2016-12-03] MEDS ORDERED: LAMI1TAB9 PO (10:04)
[2016-12-03] MEDS ORDERED: TRAZ-136 PO (10:04)
[2016-12-03 11:01] LABS: MEAN CORPUSCULAR HGB CONC 35.5 g/dl (32.0-36.5); MEAN CORPUSCULAR VOLUME 87.4 fl (80.0-96.0); RED CELL DISTRIBUTION WIDTH 12.9 % (11.5-14.5); WHITE BLOOD COUNT 6.5 K/mm3 (4.0-10.0)
[2016-12-03 11:24] LABS: METHADONE URINE NEGATIVE (NEGATIVE)
[2016-12-03 11:39] LABS: ALBUMIN 3.9 GM/DL (3.2-5.2); ALBUMIN/GLOBULIN RATIO 1.39 (1.00-1.93); ALKALINE PHOSPHATASE 63 U/L (45-117); ALT/SGPT 30 U/L (12-78); ANION GAP 5 MEQ/L (8-16); AST/SGOT 15 U/L (15-37); BILIRUBIN,DIRECT 0.1 MG/DL (0.0-0.2); BILIRUBIN,TOTAL 0.5 MG/DL (0.2-1.0); BLOOD UREA NITROGEN 6 MG/DL (7-18); CALCIUM LEVEL 8.6 MG/DL (8.5-10.1); CARBON DIOXIDE LEVEL 30 MEQ/L (21-32); CHLORIDE LEVEL 105 MEQ/L (98-107); CREATININE FOR GFR 1.07 MG/DL (0.70-1.30); GLOMERULAR FILTRATION RATE > 60.0 (>60); GLUCOSE, FASTING 89 MG/DL (70-105); POTASSIUM SERUM 4.1 MEQ/L (3.5-5.1); SODIUM LEVEL 140 MEQ/L (136-145); TOTAL PROTEIN 6.7 GM/DL (6.4-8.2)
[2016-12-03 15:20] VITALS: BP 119/72
[2016-12-03] MEDS: NICOTINE 21MG/24HR 1 EA TRANSDERMAL TD SCH (17:08)
[2016-12-03] MEDS: lamoTRIgine 100MG TAB PO SCH (20:53)
[2016-12-03] MEDS: traZODone 100 MG TAB PO PRN (20:53)
[2016-12-04 06:48] VITALS: BP 108/78
[2016-12-04] MEDS: NICOTINE 21MG/24HR 1 EA TRANSDERMAL TD SCH (08:06)
[2016-12-04] MEDS: CitaloPRAM (CeleXA) 20 MG TAB PO SCH (08:06)
[2016-12-04] MEDS: ARIPiprazole 10 MG TAB PO SCH (08:06)
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
[2016-12-04] MEDS ORDERED: CitaloPRAM (CeleXA) 20 MG TAB PO SCH (09:00)
--- NOTE | 2016-12-04 10:31 | HPEPDOC ---
Medical History and Physical Date of Admission Dec 03, 2016 at 12:47 History and Physical PCP: [facility]. ATTENDING: Dr. Eleno Hoffman HPI: 26yoM admitted to [facility] for depressive disorder, being medically examined today. Patient states he is having left foot pain, left knee pain, and left hip pain related to pulling a lot of weight and basic training. Denies any fevers, chills, weakness, fatigue, DOBSON, CP, SOB, cough, palpitations, abdominal pain, N/V/D or changes in bowel or bladder habits. 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 ROS: As noted in HPI, otherwise 11pt ROS of systems reviewed and unremarkable PE: GEN: 26yoM, appears stated age. Well-nourished, well developed. No acute distress. Alert and oriented x 3. Pleasant, interactive. HEENT: Normocephalic, atraumatic. Pupils are equal, round, and reactive to light. Extraocular movements are intact. No nystagmus appreciated. Sclera are nonicteric. Conjunctiva without injection. Nose midline. Nasal turbinates without bogginess. EACs both patent BL. TMs both visualized and esteban with good cone of light, no bulging or erythema. No facial asymmetry. Moist mucous membranes. Dentition fair. Pharynx pink and moist, no cobblestoning. Neck supple , trachea midline. No lymphadenopathy or thyromegaly appreciated. CHEST: Regular rate and rhythm, +S1, +S2 LUNGS: Clear to auscultation bilaterally. No wheezes, rales, or rhonchi. Breathing appears symmetric and easy. Patient is speaking in full sentences. No accessory muscle use. ABD: Round, soft, non-tender, non-distended. +Bowel sounds throughout. No rebound or guarding. No costovertebral angle tenderness. EXT: Pulses 2+ bilaterally dorsalis pedis and radial. No lower extremity edema appreciated. SKIN: [place], dry, warm. Capillary refill <2sec. No rashes. NEURO: Alert and oriented x 3. Cranial nerves III-XII are intact. No focal deficits appreciated. EKG: pending. A&P: 26yoM admitted to [facility] for depressive disorder 1. Psych. Plan per Psychiatry. Obtain baseline EKG to assure the safety of psychiatric medications as they can prolong the QT interval. 2. Nicotine dependence. Patch available. 3. Follow up with PCP on discharge. [facility]. 4. Chronic left foot pain, left knee pain, left hip pain. Request x-ray of the left foot, left knee, and left hip. Continue Tylenol 650 mg every 6 hours as needed. 5. Staff member present throughout exam, ana paula Maria. Vital Signs Vital Signs Date Time Temp Pulse Resp B/P (MAP) Pulse Ox O2 Delivery O2 Flow Rate FiO2 12/04/16 06:48 98.4 77 20 108/78 (88) 12/03/16 13:03 97 12/03/16 09:57 Room Air Laboratory Data Labs 24H Laboratory Tests 2 12/03/16 10:51: Anion Gap 5L, Glomerular Filtration Rate > 60.0, Calcium Level 8.6, Aspartate Amino Transf (AST/SGOT) 15, Alanine Aminotransferase (ALT/SGPT) 30, Alkaline Phosphatase 63, Total Bilirubin 0.5, Direct Bilirubin 0.1, Total Protein 6.7, Albumin 3.9, Albumin/Globulin Ratio 1.39, Thyroid Stimulating Hormone (TSH) 0.602, Salicylates Level 2.5L, Urine Amphetamines Screen NEGATIVE, Urine Benzodiazepines Screen NEGATIVE, Urine Opiates Screen NEGATIVE, Urine Methadone Screen NEGATIVE, Acetaminophen Level < 2.0L, Urine Barbiturates Screen NEGATIVE , Urine Phencyclidine Screen NEGATIVE, Urine Cocaine Metabolite Screen NEGATIVE , Urine Cannabinoids Screen NEGATIVE, Ethyl Alcohol Level < 0.003 CBC/BMP Laboratory Tests 12/03/16 10:51 Red Blood Count 4.73, Mean Corpuscular Volume 87.4, Mean Corpuscular Hemoglobin 31.0, Mean Corpuscular Hemoglobin Concent 35.5, Red Cell Distribution Width 12.9 Home Medications Scheduled Aripiprazole (Abilify) 5 Mg Tab, 5 MG PO DAILY Citalopram Hydrobromide (Celexa) 20 Mg Tab, 20 MG PO DAILY Lamotrigine (Lamictal) 200 Mg Tab, 200 MG PO DAILY Trazodone HCl (Trazodone HCl) 100 Mg Tab, 100 MG PO QHS Allergies Coded Allergies: No Known Allergies (Unverified , 05/31/16) Claudia Hurst Dec 04, 2016 10:31
--- NOTE | 2016-12-04 13:12 | REP ---
Left foot series: Four views. History: Pain. Comparison study: November 20, 2016. Findings: There is mild dorsolateral soft tissue swelling on the oblique radiograph. There is no evidence of fracture. There is Achilles calcaneal spurring. Impression: No fracture noted. Signed by Homar Johnston MD 12/04/2016 03:54 P
--- NOTE | 2016-12-04 13:12 | REP ---
Left hip: Two views. History: Pain. Findings: AP and frog-leg views of the left hip demonstrate smooth rounded femoral head and intact hip joint space. There is a benign bone island at the greater trochanter. Periarticular soft tissues are unremarkable. No erosive change is seen. No fracture is noted. Impression: Negative views of the left hip. Signed by Homar Johnston MD 12/04/2016 03:54 P
--- NOTE | 2016-12-04 13:17 | REP ---
Left knee series: Five views. History: Pain. Findings: Five views of the left knee demonstrate normal bones, joints, and soft tissues. No fracture or subluxation is seen. Joint spaces are preserved. Impression: Negative left knee series. Signed by Homar Johnston MD 12/04/2016 03:56 P
[2016-12-04 18:00] VITALS: BP 137/79
[2016-12-04] MEDS: traZODone 100 MG TAB PO PRN (20:24)
[2016-12-04] MEDS: lamoTRIgine 100MG TAB PO SCH (20:24)
[2016-12-04] MEDS: ACETAMINOPHEN TAB 650MG DOSE (2X325MG) PO PRN (20:25)
[2016-12-05 06:50] VITALS: BP 123/74
[2016-12-05] MEDS: CitaloPRAM (CeleXA) 20 MG TAB PO SCH (08:03)
[2016-12-05] MEDS: ARIPiprazole 10 MG TAB PO SCH (08:03)
[2016-12-05] MEDS: NICOTINE 21MG/24HR 1 EA TRANSDERMAL TD SCH (08:03)
[2016-12-05 18:00] VITALS: BP 120/77
[2016-12-05] MEDS: MOM 30ML SUSPENSION UDC PO PRN (18:19)
--- NOTE | 2016-12-05 19:56 | ECGEPIP ---
Stationary ECG Study [facility] Test Date: 2016-12-04 Pat Name: JASON ESPINO Department: Room: [place] [address] Gender: M Director Stars: : 1990 Requested By: Claudia Hurst Order Number: [id number] Reading MD: Radha Brown Measurements Intervals [place] Rate: 77 P: 37 OK: 158 QRS: 1 QRSD: 118 T: 31 QT: 387 QTc: 439 Interpretive Statements SINUS RHYTHM MODERATE INTRAVENTRICULAR CONDUCTION DELAY NONSPECIFIC STT ABNORMALITIES SIMILAR 05/31/16 Electronically Signed On 12-05-2016 19:55:43 EDT by Radha Brown
--- NOTE | 2016-12-05 20:07 | MHIPN ---
DATE: 12/04/2016 VITAL SIGNS: Temperature 98.4, pulse 77, respirations 20, blood pressure 108/78. CURRENT MEDICATIONS: - Abilify 10 mg every morning - Celexa 40 mg every morning - Lamictal 200 mg at bedtime - trazodone 100 mg at bedtime as needed HISTORY OF PRESENT ILLNESS: The patient is socializing with his [employer] peers on the unit. This is his second admission so he is less anxious than the first time last May. He states his appetite is good. He slept much better last night. He fell asleep faster. He did wake up three times, but then fell back to sleep quickly. He did feel a bit drowsy this morning. His Celexa and Abilify doses were increased this morning. He seems to tolerate them well. He states that his psychotic symptoms are improved. He typically hears the voices when he is alone, which is rare here on the [facility] [place]. He has had no official hallucinations either. MENTAL STATUS EXAM: The patient is alert, oriented and cooperative. Affect remains sad. Mood is moderately depressed. He has had recent auditory and visual hallucinations, but none in the past 12 hours. He does still report paranoia. He denies currently being suicidal or homicidal. Insight and judgment appear fair. There are no signs of impulsivity or dangerousness. DIAGNOSES: Major depression with psychotic features. Rule out schizoaffective disorder, depressed. PLAN: Continue psychotropics. If Abilify morning dose is sedating, we will switch it to bedtime dosage. The patient encouraged to be involved in hospital milieu.
[2016-12-05] MEDS: traZODone 100 MG TAB PO PRN (20:36)
[2016-12-05] MEDS: lamoTRIgine 100MG TAB PO SCH (20:36)
[2016-12-06 06:23] VITALS: BP 116/63
[2016-12-06] MEDS: ARIPiprazole 10 MG TAB PO SCH (08:12)
[2016-12-06] MEDS: CitaloPRAM (CeleXA) 20 MG TAB PO SCH (08:12)
[2016-12-06] MEDS: NICOTINE 21MG/24HR 1 EA TRANSDERMAL TD SCH (08:13)
[2016-12-06 18:00] VITALS: BP 118/83
[2016-12-06] MEDS: MOM 30ML SUSPENSION UDC PO PRN (20:29)
[2016-12-06] MEDS: lamoTRIgine 100MG TAB PO SCH (20:29)
[2016-12-06] MEDS: traZODone 100 MG TAB PO PRN (20:31)
--- NOTE | 2016-12-07 04:36 | MHIPN ---
DATE OF SERVICE: 12/05/2016 CURRENT MEDICATIONS: - Abilify 10 mg every morning - Celexa 40 mg every morning - Lamictal 200 mg nightly - trazodone 100 mg nightly HISTORY OF PRESENT ILLNESS: Patient did feel quite sedated yesterday. He is not feeling as fatigued today, however. He did take a nap yesterday. He did go to yoga this morning. He asked about his x-rays from yesterday. They were mostly negative, but did show some soft tissue damage in his left foot. He does have a lot of pain in his left foot. He will followup on this issue when back at [place]. He describes his history of being on the Lamictal. He claims that the Lamictal has been helpful for his depression and for his anxiety. Patient does still report feeling moderately depressed and highly anxious. He still feels paranoid. He feels that the other patients are watching him for example. His EKG is not yet available. MENTAL STATUS EXAMINATION: Patient is alert and oriented and cooperative. Patient remains anxious, sad and moderately depressed. He reports his auditory hallucinations as less prominent. The same is true for the visual. He does still report paranoid ideation, however. No signs of thought disorder. He is not currently homicidal or suicidal. Insight and judgment appear fair. Memory functions intact. DIAGNOSIS: Major depression with psychotic features, rule out schizoaffective disorder, depressed. PLAN: Continue psychotropics. EKG pending. Patient encouraged to participate in milieu therapy.
[2016-12-07 06:38] VITALS: BP 122/77
[2016-12-07] MEDS: CitaloPRAM (CeleXA) 20 MG TAB PO SCH (08:04)
[2016-12-07] MEDS: ARIPiprazole 10 MG TAB PO SCH (08:04)
[2016-12-07] MEDS: NICOTINE 21MG/24HR 1 EA TRANSDERMAL TD SCH (08:04)
[2016-12-07 18:00] VITALS: BP 136/79
[2016-12-07] MEDS: ACETAMINOPHEN TAB 650MG DOSE (2X325MG) PO PRN (20:22)
[2016-12-07] MEDS: traZODone 100 MG TAB PO PRN (20:22)
[2016-12-07] MEDS: lamoTRIgine 100MG TAB PO SCH (20:22)
[2016-12-08 06:50] VITALS: BP 129/65
[2016-12-08] MEDS: ARIPiprazole 10 MG TAB PO SCH (07:54)
[2016-12-08] MEDS: NICOTINE 21MG/24HR 1 EA TRANSDERMAL TD SCH (07:54)
[2016-12-08] MEDS: CitaloPRAM (CeleXA) 20 MG TAB PO SCH (07:54)
--- NOTE | 2016-12-08 13:02 | MHIPN ---
DATE: 12/06/2016 VITAL SIGNS: Temperature 98.0, pulse 64, respirations 18, blood pressure 116/63. CURRENT MEDICATIONS: - Abilify 10 mg every morning - Celexa 40 mg every morning - Lamictal 200 mg at bedtime (hs) - trazodone 100 mg at bedtime (hs) as needed HISTORY OF PRESENT ILLNESS: The patient struggles with visions of seeing himself hurting himself or others. He has discussed this with his therapist back at [place], who describes them as types of "dissociation." The patient reports that one of the female patients has made disparaging comments to him about his being [place]. He had some violent impulses towards her, but did not act on them. He is encouraged to report any such circumstances to the staff for the staff to intervene on his behalf. He feels the medications have been helpful. The visions are not as frequent. The auditory hallucinations have much improved. He states he rarely hears them when he is around other people. He typically hears the voices just when he is by himself, which is rare here in the [facility] [place]. He still feels quite paranoid; however, he feels the other patients are staring at him or spying upon him. He feels that the [employer] and [employer] are always talking about him behind his back. 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 The patient feels a little bit sedated from the increased dose and morning psychotropics, but he states that this is tolerable. He is happy that his temper seems improve. He reports his mood is less depressed as well. MENTAL STATUS EXAMINATION: The patient is alert, oriented and cooperative. Affect is still sad. Mood is still mildly to moderately depressed. Not currently hearing voices, but the patient does have visual hallucinations. Paranoia is still less prominent. He denies being suicidal or homicidal. Insight and judgment remains fair. Impulse control appears reasonably good. DIAGNOSIS: 1. Major depression with psychotic features, rule out schizoaffective disorder, depressed. PLAN: Continue psychotropics. The patient informed that he was a new psychiatrist as of Friday.
[2016-12-08 18:00] VITALS: BP 133/61
[2016-12-08] MEDS: traZODone 100 MG TAB PO PRN (20:30)
[2016-12-08] MEDS: lamoTRIgine 100MG TAB PO SCH (20:30)
[2016-12-08] MEDS: ACETAMINOPHEN TAB 650MG DOSE (2X325MG) PO PRN (20:31)
[2016-12-09 06:27] VITALS: BP 121/58
--- NOTE | 2016-12-09 06:39 | MHIPN ---
DATE: 12/07/2016 CHIEF COMPLAINT: Says is feeling better. SUBJECTIVE: Seen for followup in the presence of staff. Says feels better, and that the voices are diminished, says images, more recently, are also decreased in frequency. The images are related to what he sees at the time, and then sees images of him interacting with whatever he is seeing; for example, slashing someone with a knife, but says they occur more often when he is distressed. He also says the voices he hears are familiar ones, and they are less disturbing. He also tends to associate these perceptual disturbances with his distress and mood. MENTAL STATUS EXAMINATION: He is lying in bed. He is cooperative. He is coherent. There is no agitation, no psychomotor retardation. Affect is fairly broad. Denies any thoughts of harming himself or anyone else at present. Does not appear to be internally preoccupied. Cognition grossly intact. His judgment is questionable, insight fair. ASSESSMENT: 1. Major depressive disorder, with psychotic features. 2. Rule out schizoaffective disorder. PLAN: Continue Abilify 10 mg daily, citalopram 40 mg daily, lamotrigine 200 mg at night, trazodone 100 mg at night as needed for insomnia. He is given verbal support. He is receptive to it. We will encourage him to participate in activities in the unit. VITAL SIGNS: Blood pressure 122/77, pulse 89, temperature 98.2.
[2016-12-09] MEDS: ARIPiprazole 10 MG TAB PO SCH (08:18)
[2016-12-09] MEDS: NICOTINE 21MG/24HR 1 EA TRANSDERMAL TD SCH (08:18)
[2016-12-09] MEDS: CitaloPRAM (CeleXA) 20 MG TAB PO SCH (08:18)
--- NOTE | 2016-12-09 16:04 | MHIPNPDOC ---
[facility] Progress Note Progress Note DATE OF SERVICE: 12/09/16 HISTORY: Patient was seen and evaluated for his progress in the inpatient psychiatry on evaluation, patient reported that he has been feeling better and all his hallucinations including auditory and visual hallucinations have decreased. He reported the last time that he was having auditory hallucination was about 2 days ago. Denies any command hallucinations and visual hallucinations seem to be more like dissociative experience for the patient where he is seeing himself as a third person doing certain things. He also reported that he has been less angry and paranoid, able to come out of his room more often and participate in unit activities. He reports that he would like to get rid off all the paranoia and hallucinations. Asking for music and other things to calm down. He denies any suicidal or homicidal ideations, able to eat and sleep well. Discussed about medications and is willing to go up on Abilify. VITAL SIGNS: See below. CURRENT MEDICATIONS: See below. MENTAL STATUS EXAMINATION: 26yo male sitting in the chair, looks appropriate for the stated age, fair hygiene and grooming, normal psychomotor activities, no abnormal movements, cooperative with fair eye contact, speech is normal in rate, rhythm, amount and prosody, mood is 'fine', affect full and mood congruent, thought process is logical and goal directed, denies suicidal and homicidal ideations, denies hallucinations, paranoid at times, aaox3, fair immediate, short term and half-way memory, limited insight, judgement and fair impulse control DIAGNOSES: 1. Schizoaffective disorder, depressed type versus major depression with psychotic features. MANAGEMENT PLAN: We will increase the dose of Abilify to 15 mg a day, continue to rest of the treatment. TIME SPENT: 15 minutes. Vital Signs Vital Signs Date Time Temp Pulse Resp B/P (MAP) Pulse Ox O2 Delivery O2 Flow Rate FiO2 12/09/16 06:27 97.9 72 18 121/58 (79) 12/03/16 13:03 97 12/03/16 09:57 Room Air Current Medications Current Medications Acetaminophen (Tylenol Tab) 650 mg Q6HP PRN PO PAIN / FEVER Last administered on 12/08/16t 20:31; Start 12/03/16 at 14:45; Stop 01/02/17 at 14:44 Al Hydrox/Mg Hydrox/Simethicone (Mylanta) 30 ml Q4HP PRN PO HEARTBURN; Start at 14:45; Stop 01/02/17 at 14:44 Aripiprazole (AbiLIFY) 5 mg DAILY PO ; Start 12/04/16 at 09:00; Stop 12/04/16 at 09:00; Status DC Aripiprazole (AbiLIFY) 10 mg DAILY PO Last administered on 12/09/16 08:18; Start 12/04/16 at 09:00; Stop 01/03/17 at 08:59 Citalopram Hydrobromide (CeleXA) 20 mg DAILY PO ; Start 12/04/16 at 09:00; Stop 12/04/16 at 09:00; Status DC Citalopram Hydrobromide (CeleXA) 40 mg DAILY PO Last administered on 12/09/16 08:18; Start 12/04/16 at 09:00; Stop 01/03/17 at 08:59 Home Med (Med Rec Complete!) ASDIRECTED XX ; Start 12/03/16 at 13:45; Stop at 13:45; Status DC Lamotrigine (LaMICtal) 200 mg QHS PO Last administered on 12/08/16 20:30; Start 12/03/16 at 21:00; Stop 01/02/17 at 20:59 Magnesium Hydroxide (Milk Of Magnesia) 30 ml DAILYPRN PRN PO CONSTIPATION Last administered on 12/06/16 20:29; Start 12/03/16 at 14:45; Stop 01/02/17 at 14:44 Nicotine (Nicoderm Cq 21mg) 1 patch DAILY TD Last administered on 12/09/16 08: 18; Start 12/03/16 at 09:00; Stop 01/02/17 at 08:59 Trazodone HCl (Desyrel) 100 mg QHSP PRN PO INSOMNIA Last administered on 20:30; Start 12/03/16 at 14:45; Stop 01/02/17 at 14:44 Allergies Coded Allergies: No Known Allergies (Unverified , 05/31/16) JHONY ALBRECHT MD Dec 09, 2016 16:04
[2016-12-09 18:00] VITALS: BP 143/87
[2016-12-09] MEDS: lamoTRIgine 100MG TAB PO SCH (20:08)
[2016-12-09] MEDS: traZODone 100 MG TAB PO PRN (20:08)
[2016-12-09] MEDS: ACETAMINOPHEN TAB 650MG DOSE (2X325MG) PO PRN (20:09)
[2016-12-09] MEDS: MAALOX 30 ML SUSP *UDC PO PRN (20:13)
[2016-12-10 07:25] VITALS: BP 119/65
[2016-12-10] MEDS: ARIPiprazole 15 MG TAB (AbiLIFY) PO SCH (08:01)
[2016-12-10] MEDS: CitaloPRAM (CeleXA) 20 MG TAB PO SCH (08:01)
[2016-12-10] MEDS: NICOTINE 21MG/24HR 1 EA TRANSDERMAL TD SCH (08:01)
--- NOTE | 2016-12-10 17:21 | MHIPNPDOC ---
[facility] Progress Note Progress Note DATE OF SERVICE: 12/10/16 HISTORY: Patient was seen and evaluated for his progress in the inpatient unit on evaluation patient reported that he has been taking increased dose of Abilify without any problem. He denies any side effect with the current medications. He also denies any hallucinations, visual or auditory. He reported that he has been irritable recently, but denies any agitation or aggressive behavior. He is not sure what is making him irritable, but reported that he would like to get out of the inpatient unit Soon. He denies any sleep or appetite problems. The last time that he had any visual or auditory hallucination was about 3 days ago and he also denies any dissociative symptoms recently. VITAL SIGNS: See below. NEW TEST RESULTS: None. CURRENT MEDICATIONS: - Abilify 15 mg every morning - Celexa 40 mg every morning - Lamictal 200 mg at bedtime (hs) - trazodone 100 mg at bedtime (hs) as needed MENTAL STATUS EXAMINATION: 26yo male sitting in the chair, looks appropriate for the stated age, fair hygiene and grooming, normal psychomotor activities, no abnormal movements, cooperative with fair eye contact, speech is normal in rate, rhythm, amount and prosody, mood is 'fine', affect full and mood congruent, thought process is logical and goal directed, denies suicidal and homicidal ideations, denies hallucinations, no delusions elicited, aaox3, fair immediate, short term and retirement memory, fair insight, judgement and impulse control DIAGNOSES: 1. Major depression with psychotic symptoms, rule out schizoaffective disorder, depressed type. ASSESSMENT: Patient still remains internally preoccupied and seemed to be more irritable. MANAGEMENT PLAN: Continue current treatment. TIME SPENT:. 15 minutes. Vital Signs Vital Signs Date Time Temp Pulse Resp B/P (MAP) Pulse Ox O2 Delivery O2 Flow Rate FiO2 12/10/16 07:25 98.9 83 16 119/65 (83) Allergies Coded Allergies: No Known Allergies (Unverified , 05/31/16) JHONY ALBRECHT MD Dec 10, 2016 17:21
[2016-12-10 18:00] VITALS: BP 118/86
[2016-12-10] MEDS: MAALOX 30 ML SUSP *UDC PO PRN (18:58)
[2016-12-10] MEDS: traZODone 100 MG TAB PO PRN (20:35)
[2016-12-10] MEDS: lamoTRIgine 100MG TAB PO SCH (20:35)
[2016-12-11 06:54] VITALS: BP 135/85
[2016-12-11] MEDS: ARIPiprazole 15 MG TAB (AbiLIFY) PO SCH (07:57)
[2016-12-11] MEDS: NICOTINE 21MG/24HR 1 EA TRANSDERMAL TD SCH (07:57)
[2016-12-11] MEDS: CitaloPRAM (CeleXA) 20 MG TAB PO SCH (07:57)
--- NOTE | 2016-12-11 14:17 | MHIPNPDOC ---
[facility] Progress Note Progress Note DATE OF SERVICE: 12/11/16 HISTORY: Patient was seen and evaluated for his progress in inpatient psychiatry unit. On evaluation, patient reported that he has been feeling less depressed and anxious with the current treatment. He is also feeling more calm today. He denies any suicidal or homicidal ideations, but reported that when he is without the [employer], work which is very stressful for him, He starts thinking about suicide again. He reported that he recently came out as homosexual to his family and most of the family members were not happy with him. He also reported that he is part of 1 group which does not allow homosexuality. All of this has been making more stressful life for him and he was decompensating because of that. Discussed about better coping mechanisms and he is willing to try them out. Also discussed about safety planning and he was ambivalent about it. Sleeping and eating well and denies any psychotic symptoms in the last 3-4 days VITAL SIGNS: See below. CURRENT MEDICATIONS: - Abilify 15 mg every morning - Celexa 40 mg every morning - Lamictal 200 mg at bedtime (hs) - trazodone 100 mg at bedtime (hs) as needed MENTAL STATUS EXAMINATION: 26yo male sitting in the chair, looks appropriate for the stated age, fair hygiene and grooming, normal psychomotor activities, no abnormal movements, cooperative with fair eye contact, speech is normal in rate, rhythm, amount and prosody, mood is 'fine', affect full and mood congruent, thought process is logical and goal directed, denies suicidal and homicidal ideations, denies hallucinations, no delusions elicited, aaox3, fair immediate, short term and [place] [facility] memory, fair insight, judgement and impulse control DIAGNOSES: 1. Major depression with psychotic symptoms, rule out schizoaffective disorder, depressed type. ASSESSMENT:. Patient improving on the current treatment, but remains fragile. Discharge planning in progress MANAGEMENT PLAN:. Continue current treatment. TIME SPENT:. 15 minutes. Vital Signs Vital Signs Date Time Temp Pulse Resp B/P (MAP) Pulse Ox O2 Delivery O2 Flow Rate FiO2 12/11/16 06:54 97.7 84 16 135/85 (102) 12/10/16 18:00 Room Air Allergies Coded Allergies: No Known Allergies (Unverified , 05/31/16) JHONY ALBRECHT MD Dec 11, 2016 14:17
[2016-12-11 18:00] VITALS: BP 124/60
[2016-12-11] MEDS: lamoTRIgine 100MG TAB PO SCH (20:25)
[2016-12-11] MEDS: traZODone 100 MG TAB PO PRN (20:25)
[2016-12-12 06:13] VITALS: BP 128/71
[2016-12-12] MEDS: ARIPiprazole 15 MG TAB (AbiLIFY) PO SCH (08:05)
[2016-12-12] MEDS: NICOTINE 21MG/24HR 1 EA TRANSDERMAL TD SCH (08:06)
[2016-12-12] MEDS: CitaloPRAM (CeleXA) 20 MG TAB PO SCH (08:06)
--- NOTE | 2016-12-12 14:07 | MHIPNPDOC ---
[facility] Progress Note Progress Note DATE OF SERVICE: 12/12/16 HISTORY: The patient was seen and evaluated for his progress in inpatient psychiatric unit. On evaluation, patient reported that he has been feeling better and denies any suicidal or homicidal ideations sleeping and eating fine, taking his medications regularly and denies any side effects. He talked about coming out as a cabello to his family in May 2016, and how some of the family members who were close to him and not willing to accept his homosexuality, which is very stressful for him, but he is also wanting to be true to himself. He reported that he does not want to date girls anymore, which he used to do because of pressure of the family and also writing to hide his homosexuality from others. Discussed about coming out as homosexual, can be difficult and what to expect those situations and how to help others support him the way he is. Denies paranoia, auditory or visual hallucinations VITAL SIGNS: See below. CURRENT MEDICATIONS: - Abilify 15 mg every morning - Celexa 40 mg every morning - Lamictal 200 mg at bedtime (hs) - trazodone 100 mg at bedtime (hs) as needed MENTAL STATUS EXAMINATION: 26yo male sitting in the chair, looks appropriate for the stated age, fair hygiene and grooming, normal psychomotor activities, no abnormal movements, cooperative with fair eye contact, speech is normal in rate, rhythm, amount and prosody, mood is 'fine', affect full and mood congruent, thought process is logical and goal directed, denies suicidal and homicidal ideations, denies hallucinations, no delusions elicited, aaox3, fair immediate, short term and snf memory, fair insight, judgement and impulse control DIAGNOSES: 1. Major depression with psychotic symptoms, rule out schizoaffective disorder, depressed type. ASSESSMENT:. Patient improving on the current treatment, but remains fragile. Discharge planning in progress MANAGEMENT PLAN:. Continue current treatment. TIME SPENT:. 15 minutes. Vital Signs Vital Signs Date Time Temp Pulse Resp B/P (MAP) Pulse Ox O2 Delivery O2 Flow Rate FiO2 12/12/16 06:13 99.3 73 18 128/71 (90) 12/11/16 18:00 Room Air Current Medications Current Medications Acetaminophen (Tylenol Tab) 650 mg Q6HP PRN PO PAIN / FEVER Last administered on 12/09/16 20:09; Start 12/03/16 at 14:45; Stop 01/02/17 at 14:44 Al Hydrox/Mg Hydrox/Simethicone (Mylanta) 30 ml Q4HP PRN PO HEARTBURN Last administered on 12/10/16 18:58; Start 12/03/16 at 14:45; Stop 01/02/17 at 14:44 Aripiprazole (AbiLIFY) 5 mg DAILY PO ; Start 12/04/16 at 09:00; Stop 12/04/16 at 09:00; Status DC Aripiprazole (AbiLIFY) 10 mg DAILY PO Last administered on 12/09/16 08:18; Start 12/04/16 at 09:00; Stop 12/09/16 at 16:06; Status DC Aripiprazole (AbiLIFY) 15 mg DAILY PO Last administered on 12/12/16 08:05; Start 12/10/16 at 09:00; Stop 01/09/17 at 08:59 Citalopram Hydrobromide (CeleXA) 20 mg DAILY PO ; Start 12/04/16 at 09:00; Stop 12/04/16 at 09:00; Status DC Citalopram Hydrobromide (CeleXA) 40 mg DAILY PO Last administered on 12/12/16 08:06; Start 12/04/16 at 09:00; Stop 01/03/17 at 08:59 Home Med (Med Rec Complete!) ASDIRECTED XX ; Start 12/03/16 at 13:45; Stop at 13:45; Status DC Lamotrigine (LaMICtal) 200 mg QHS PO Last administered on 12/11/16 20:25; Start 12/03/16 at 21:00; Stop 01/02/17 at 20:59 Magnesium Hydroxide (Milk Of Magnesia) 30 ml DAILYPRN PRN PO CONSTIPATION Last administered on 12/06/16 20:29; Start 12/03/16 at 14:45; Stop 01/02/17 at 14:44 Nicotine (Nicoderm Cq 21mg) 1 patch DAILY TD Last administered on 12/12/16 08: 06; Start 12/03/16 at 09:00; Stop 01/02/17 at 08:59 Trazodone HCl (Desyrel) 100 mg QHSP PRN PO INSOMNIA Last administered on t 20:25; Start 12/03/16 at 14:45; Stop 01/02/17 at 14:44 Allergies Coded Allergies: No Known Allergies (Unverified , 05/31/16) JHONY ALBRECHT MD Dec 12, 2016 14:07
[2016-12-12 18:00] VITALS: BP 134/71
[2016-12-12] MEDS: traZODone 100 MG TAB PO PRN (20:14)
[2016-12-12] MEDS: lamoTRIgine 100MG TAB PO SCH (20:14)
[2016-12-13 06:41] VITALS: BP 127/74
[2016-12-13] MEDS: NICOTINE 21MG/24HR 1 EA TRANSDERMAL TD SCH (08:25)
[2016-12-13] MEDS: ARIPiprazole 15 MG TAB (AbiLIFY) PO SCH (08:25)
[2016-12-13] MEDS: CitaloPRAM (CeleXA) 20 MG TAB PO SCH (08:25)
--- NOTE | 2016-12-13 14:05 | MHIPNPDOC ---
[facility] Progress Note Progress Note DATE OF SERVICE: 12/13/16 HISTORY: Patient was seen and evaluated for his progress in inpatient psychiatry unit. On evaluation, patient reported that he has been feeling better and denies any suicidal or homicidal ideations, sleeping and eating better. He reported having some anxiety at times but able to manage the anxiety well. Discussed about repairing for going back to work and how he can handle certain situations, which was stressing him out in the past and he was not able to cope with them well. Patient is planning to make a list of situations like that and also planning to list the things that he would like to do differently after discharge. Denies any paranoid ideations and also denies auditory or visual hallucinations and also denies any other psychotic symptoms. Discharge planning in progress and patient is scheduled to have chain of command meeting before discharge. VITAL SIGNS: See below. CURRENT MEDICATIONS: - Abilify 15 mg every morning - Celexa 40 mg every morning - Lamictal 200 mg at bedtime (hs) - trazodone 100 mg at bedtime (hs) as needed MENTAL STATUS EXAMINATION: 26yo male sitting in the chair, looks appropriate for the stated age, fair hygiene and grooming, normal psychomotor activities, no abnormal movements, cooperative with fair eye contact, speech is normal in rate, rhythm, amount and prosody, mood is 'fine', affect full and mood congruent, thought process is logical and goal directed, denies suicidal and homicidal ideations, denies hallucinations, no delusions elicited, aaox3, fair immediate, short term and senior living memory, fair insight, judgement and impulse control DIAGNOSES: 1. Major depression with psychotic symptoms, rule out schizoaffective disorder, depressed type. ASSESSMENT:. Patient improving on the current treatment, but remains fragile. Discharge planning in progress MANAGEMENT PLAN:. Continue current treatment. TIME SPENT:. 15 minutes.. Vital Signs Vital Signs Date Time Temp Pulse Resp B/P (MAP) Pulse Ox O2 Delivery O2 Flow Rate FiO2 12/13/16 06:41 97.7 83 16 127/74 (91) Room Air Allergies Coded Allergies: No Known Allergies (Unverified , 05/31/16) JHONY ALBRECHT MD Dec 13, 2016 14:05
[2016-12-13 18:00] VITALS: BP 129/68
[2016-12-13] MEDS: lamoTRIgine 100MG TAB PO SCH (20:11)
[2016-12-13] MEDS: traZODone 100 MG TAB PO PRN (20:11)
[2016-12-14 06:00] VITALS: BP 125/60
[2016-12-14 06:39] VITALS: BP 166/118
[2016-12-14 07:10] VITALS: BP 140/92
[2016-12-14] MEDS: ARIPiprazole 15 MG TAB (AbiLIFY) PO SCH (08:03)
[2016-12-14] MEDS: CitaloPRAM (CeleXA) 20 MG TAB PO SCH (08:03)
[2016-12-14] MEDS: NICOTINE 21MG/24HR 1 EA TRANSDERMAL TD SCH (08:03)
[2016-12-14 17:23] VITALS: BP 125/60
[2016-12-14 18:00] VITALS: BP 130/62
[2016-12-14] MEDS: MAALOX 30 ML SUSP *UDC PO PRN (19:47)
[2016-12-14] MEDS: traZODone 100 MG TAB PO PRN (20:22)
[2016-12-14] MEDS: lamoTRIgine 100MG TAB PO SCH (20:23)
[2016-12-15 06:34] VITALS: BP 136/83
[2016-12-15] MEDS: NICOTINE 21MG/24HR 1 EA TRANSDERMAL TD SCH (09:48)
[2016-12-15] MEDS: CitaloPRAM (CeleXA) 20 MG TAB PO SCH (09:48)
[2016-12-15] MEDS: ARIPiprazole 15 MG TAB (AbiLIFY) PO SCH (09:48)
[2016-12-15 18:00] VITALS: BP 139/81
[2016-12-15] MEDS: lamoTRIgine 100MG TAB PO SCH (20:15)
[2016-12-15] MEDS: traZODone 100 MG TAB PO PRN (20:16)
[2016-12-16 06:00] VITALS: BP 102/51
[2016-12-16] MEDS: CitaloPRAM (CeleXA) 20 MG TAB PO SCH (08:11)
[2016-12-16] MEDS: ARIPiprazole 15 MG TAB (AbiLIFY) PO SCH (08:11)
[2016-12-16] MEDS: NICOTINE 21MG/24HR 1 EA TRANSDERMAL TD SCH (08:11)
[2016-12-16] MEDS ORDERED: LAMO10TA PO (10:42)
[2016-12-16] MEDS ORDERED: ARIP15TAB PO (10:42)
[2016-12-16] MEDS ORDERED: TRAZ10TA PO (10:42)
[2016-12-16] MEDS ORDERED: CELE20TA PO (10:42)
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
== END 2016-12-16 11:10 | disposition home or self-care (01) | DRG 885 ==
LOC: M ED 09:50 → M ED INP 12:47 → M PSY 13:45
PROVIDERS: ADMIT Psychiatry & Neurology Psychiatry; ATTEND Psychiatry & Neurology Psychiatry
DX: F32.3 Major depressive disorder, single episode, severe with psychotic features (principal); F41.9 Anxiety disorder, unspecified; G47.00 Insomnia, unspecified; F17.200 Nicotine dependence, unspecified, uncomplicated; M79.672 Pain in left foot; M25.552 Pain in left hip; M25.562 Pain in left knee; Z79.899 Other long term (current) drug therapy

== ENCOUNTER → 2017-01-25 | Outpatient (CLI) | payer OTHER ==
[~2017-01-25] MED LIST changes: +ABIL1TAB11 PO; +ARIP15TAB PO; +CELE40TA PO; +LAMI1TAB9 PO; +LAMO10TA PO; +TRAZ-136 PO; +TRAZ10TA PO
--- NOTE | 2017-01-28 19:33 | SLEEPCENT ---
DATE OF PROCEDURE: 01/25/2017 REQUESTING PROVIDER: Nupur Saleh NP INTERPRETATION: Nocturnal polysomnography was performed to assess sleep physiology in this patient with a history of excessive somnolence, impaired cognition, snoring and nonrestorative sleep. 8 hours and 59 minutes of data were reviewed. There were 485 minutes of sleep identified. Sleep latency was short at 7 minutes. Rapid eye movement (REM) latency was normal at 79 minutes. Sleep architecture was good with five REM periods appreciated. Overall sleep efficiency was 91.5%. The patient's electrocardiogram (EKG) showed a sinus rhythm with an average heart rate of 62 beats per minute. Mild rate variability was seen surrounding respiratory events. Rate ranged 50 to 90 beats per minute. Electroencephalogram (EEG) showed some coarsening in background, alpha intrusion into non REM stages, no focal events were identified. There were 77 respiratory events identified of 10 seconds in duration or greater for an apnea hypopnea index of 9.5. The events were primarily obstructive, not exclusive to sleep stage nor to body posture. Respiratory related arousals occurred 2.9 times per hour. There was minimal limb activity and remaining measures of sleep physiology were normal with the exception of oxygen desaturations into the upper 80s with respiratory events. IMPRESSION: 1. Obstructive sleep apnea syndrome (G47.33). Apnea-hypopnea index of 9.5. RECOMMENDATIONS: The patient should be encouraged to return to the sleep disorder center for pressure therapy. In the interim, alcohol and sedative avoidance should be practiced and caution exercised during the operating of motor vehicles.
== END ==
LOC: M SLEEP 20:00
PROVIDERS: ATTEND Nurse Practitioner Adult Health
DX: G47.30 Sleep apnea, unspecified (principal)

== ENCOUNTER 2017-04-14 16:47 | Inpatient (IN) | payer OTHER ==
[2017-04-14 17:26] LABS: MEAN CORPUSCULAR HEMOGLOBIN 30.6 pg (27.0-33.0); MEAN CORPUSCULAR HGB CONC 35.5 g/dl (32.0-36.5); PLATELET COUNT, AUTOMATED 272 10^3/uL (150-450); RED CELL DISTRIBUTION WIDTH 12.4 % (11.5-14.5); WHITE BLOOD COUNT 8.1 10^3/uL (4.0-10.0)
[2017-04-14 17:37] LABS: METHADONE URINE NEGATIVE (NEGATIVE)
[2017-04-14 17:48] LABS: ALBUMIN 4.5 GM/DL (3.2-5.2); ALBUMIN/GLOBULIN RATIO 1.36 (1.00-1.93); ALKALINE PHOSPHATASE 82 U/L (45-117); ALT/SGPT 35 U/L (12-78); ANION GAP 6 MEQ/L (8-16); AST/SGOT 19 U/L (7-37); BILIRUBIN,DIRECT 0.1 MG/DL (0.0-0.2); BILIRUBIN,TOTAL 0.4 MG/DL (0.2-1.0); BLOOD UREA NITROGEN 12 MG/DL (7-18); CALCIUM LEVEL 8.7 MG/DL (8.5-10.1); CARBON DIOXIDE LEVEL 30 MEQ/L (21-32); CHLORIDE LEVEL 105 MEQ/L (98-107); CREATININE FOR GFR 1.02 MG/DL (0.70-1.30); GLOMERULAR FILTRATION RATE > 60.0 (>60); GLUCOSE, FASTING 92 MG/DL (70-105); POTASSIUM SERUM 3.8 MEQ/L (3.5-5.1); SODIUM LEVEL 141 MEQ/L (136-145); TOTAL PROTEIN 7.8 GM/DL (6.4-8.2)
[2017-04-14] MEDS ORDERED: ACETAMINOPHEN TAB 650MG DOSE (2X325MG) PO (18:30)
[2017-04-14] MEDS ORDERED: MOM 30ML SUSPENSION UDC PO (18:30)
[2017-04-14] MEDS ORDERED: MAALOX 30 ML SUSP *UDC PO (18:30)
[2017-04-14] MEDS: lamoTRIgine 100MG TAB PO (21:00)
[2017-04-14] MEDS: traZODone 50 MG TAB PO (21:30)
[2017-04-15] MEDS: CitaloPRAM (CeleXA) 20 MG TAB PO (08:02)
[2017-04-15] MEDS: ARIPiprazole 15 MG TAB (AbiLIFY) PO (08:02)
[2017-04-15] MEDS: NICOTINE 21MG/24HR 1 EA TRANSDERMAL TD (08:02)
[2017-04-15] MEDS: guaiFENesin SYRUP 200 MG/10 ML UDC PO (13:19)
[2017-04-15] MEDS: traZODone 50 MG TAB PO (20:03)
[2017-04-15] MEDS: lamoTRIgine 100MG TAB PO (20:03)
[2017-04-15] MEDS: PRAZOSIN 1 MG CAP PO (20:04)
[2017-04-15] MEDS: AUGMENTIN 875 MG TAB PO (21:45)
[2017-04-16] MEDS: NICOTINE 21MG/24HR 1 EA TRANSDERMAL TD (08:02)
[2017-04-16] MEDS: ARIPiprazole 15 MG TAB (AbiLIFY) PO (08:02)
[2017-04-16] MEDS: CitaloPRAM (CeleXA) 20 MG TAB PO (08:02)
[2017-04-16] MEDS: AUGMENTIN 875 MG TAB PO ×2 (08:02→20:03)
[2017-04-16] MEDS ORDERED: GABAPENTIN 300 MG CAP PO (14:30)
[2017-04-16] MEDS: lamoTRIgine 100MG TAB PO (20:03)
[2017-04-16] MEDS: traZODone 50 MG TAB PO (20:04)
[2017-04-16] MEDS: PRAZOSIN 1 MG CAP PO (20:04)
[2017-04-16] MEDS: GABAPENTIN 300 MG CAP PO (20:04)
[2017-04-17] MEDS: AUGMENTIN 875 MG TAB PO (08:02)
[2017-04-17] MEDS: ARIPiprazole 15 MG TAB (AbiLIFY) PO (08:02)
[2017-04-17] MEDS: NICOTINE 21MG/24HR 1 EA TRANSDERMAL TD (08:02)
[2017-04-17] MEDS: CitaloPRAM (CeleXA) 20 MG TAB PO (08:02)
[2017-04-17] MEDS: guaiFENesin SYRUP 200 MG/10 ML UDC PO (08:20)
== END 2017-04-17 10:13 | disposition home or self-care (01) | DRG 882 ==
LOC: M ED 16:47 → M ED INP 18:17 → M PSY 21:20
DX: F43.10 Post-traumatic stress disorder, unspecified (principal); R45.851 Suicidal ideations; F31.9 Bipolar disorder, unspecified; G47.33 Obstructive sleep apnea (adult) (pediatric); F44.9 Dissociative and conversion disorder, unspecified; F17.210 Nicotine dependence, cigarettes, uncomplicated; M25.552 Pain in left hip; M25.562 Pain in left knee; M25.572 Pain in left ankle and joints of left foot; R45.850 Homicidal ideations; Z91.5 Personal history of self-harm; Z79.899 Other long term (current) drug therapy; Z99.89 Dependence on other enabling machines and devices